=== PATIENT | male | born 1980 | race Caucasian/White ===

== ENCOUNTER 2021-06-14 22:51 | Inpatient (IN) ==
[2021-06-14 23:21] LABS: ABG ALLEN TEST POS; ABG BASE EXCESS 2.2 mmol/L (-2.0-2.0); ABG HCO3 26.5 mmol/L (22-26)
--- NOTE | 2021-06-14 23:24 | DR.GENAD ---
HPI Time Seen Time Seen by Provider: 06/14/21 23:16 HPI Comment HPI Comment: Reportedly diagnosed with covid last Sunday with fever, chills and cough; over the past few days, he's becoming increasingly sob with fatigue and body aches; no abd pain, n/v/d. ROS Review of Systems Eyes: No Symptoms Reported ENTM: No Symptoms Reported Cardiovascular: No Symptoms Reported Gastrointestinal/Abdominal: No Symptoms Reported Genitourinary: No Symptoms Reported Neurological: No Symptoms Reported Integumentary: No Symptoms Reported Hematologic/Lymphatic: No Symptoms Reported Endocrine: No Symptoms Reported Psychiatric: No Symptoms Reported PE Vital Signs Vitals: Temperature 97.5 F Pulse Rate 89 Respiratory Rate 22 Blood Pressure 119/78 O2 Sat by Pulse Oximetry 88 General Limitations: No Limitations General Appearance: Alert and In No Apparent Distress Head Head Exam: Normal Inspection Eyes Eye exam: Normal Appearance Neck Neck Exam: Normal Inspection Chest Chest Inspection: Normal Inspection Respiratory Respiratory Exam: Normal Lung Sounds Bilat Respiratory Exam: Bilateral: Clear to Auscultation Cardiovascular Cardiovascular Exam: Regular Rate and Normal Rhythm Abdominal Exam Abdominal Exam: Normal Inspection, Normal Bowel Sounds and Soft Extremities Extremities Exam: Normal Inspection Back Back Exam: Normal Inspection Neurologic Neurological Exam: Alert and Oriented X3 Psychiatric Psychiatric Exam: Normal Affect and Normal Mood Skin Skin Exam: Warm, Dry, Intact and Normal Color COURSE Consultation Call Returned: 03:24 (Dr Ogden accepts admission) ROR Labs Reviewed Laboratory Results Reviewed?: Yes Result Diagrams: 06/14/21 23:26 06/14/21 23:26 Laboratory: WBC 4.3 X10^3/uL (3.6-10.0) 06/14/21 23:26 RBC 5.15 X10^6/uL (4.7-6.0) 06/14/21 23:26 Hgb 16.0 g/dL (13.5-18.0) 06/14/21 23:26 Hct 45.7 % (42.0-54.0) 06/14/21 23:26 MCV 88.8 fL (80.0-100.0) 06/14/21 23:26 MCH 31.1 pg (27.0-34.0) 06/14/21 23:26 MCHC 35.1 g/dL (33.0-35.0) H 06/14/21 23:26 RDW 13.5 % (11.6-16.5) 06/14/21 23: Plt Count 210 X10^3/uL (150.0-450.0) 06/14/21: MPV 8.1 fL (7.4-11.0) 06/14/21 23: Neut % (Auto) 83.3 % (42.0-75.0) H 06/14/21 23: Lymph % (Auto) 12.5 % (21.0-51.0) L 06/14/21 23: [place] % (Auto) 4.1 % (0.0-13.0) 06/14/21: Eos % (Auto) 0.0 % (0.9-2.9) L 06/14/21: Baso % (Auto) 0.1 % (0.2-1.0) L 06/14/21: Neut # (Auto) 3.6 x10^3/uL (2.2-4.8) 06/14/21: Lymph # (Auto) 0.5 X10^3/uL (1.3-2.9) L 06/14/21 23: [place] # (Auto) 0.2 x10^3/uL (0.3-0.8) L 06/14/21 23: Eos # (Auto) 0.0 x10^3/uL (0.0-0.2) 06/14/21 23: Baso # (Auto) 0.0 X10^3/uL (0.0-0.1) 06/14/21: Absolute Nucleated RBC 0.0 /100WBC 06/14/21 23: Sample Site Lr 06/14/21 23:15 ABG pH 7.440 (7.35-7.45) 06/14/21 23:15 ABG pCO2 39.0 mmHg (35.0-45.0) 06/14/21 23:15 ABG pO2 52.0 mmHg (80.0-100.0) L 06/14/21 23:15 ABG HCO3 26.5 mmol/L (22-26) H 06/14/21 23:15 ABG O2 Saturation 88.0 % (90-100) L 06/14/21 23:15 ABG Base Excess 2.2 mmol/L (-2.0-2.0) H 06/14/21 23:15 Raul Test Pos 06/14/21 23:15 A-a Gradient 49.0 mmHg 06/14/21 23:15 FiO2 21.0 06/14/21 23:15 Blood Gas Comments Ludmila well ae 06/14/21 23:15 Sodium 137 mmol/L (136-145) 06/14/21 23:26 Corrected Sodium 139 mmol/L (136-145) 06/14/21 23:26 Potassium 4.2 mmol/L (3.5-5.1) 06/14/21 23:26 Chloride 101 mmol/L (98-107) 06/14/21 23:26 Carbon Dioxide 27.1 mmol/L (21-32) 06/14/21 23:26 BUN 13 mg/dL (7-18) 06/14/21 23:26 Creatinine 1.20 mg/dL (0.70-1.30) 06/14/21 23:26 Est GFR (MDRD) Af Amer > 60 (>60) 06/14/21 23:26 Est GFR (MDRD) Non-Af > 60 (>60) 06/14/21 23:26 Glucose 180 mg/dL (65-99) H 06/14/21 23:26 Calcium 8.4 mg/dL (8.5-10.1) L 06/14/21 23:26 Corrected Calcium 9.1 mg/dL (8.5-10.1) 06/14/21 23:26 Ferritin 3514 ng/mL (26-388) H 06/14/21 23:26 Total Bilirubin 0.30 mg/dL (0.2-1.0) 06/14/21 23:26 AST 41 Units/L (15-37) H 06/14/21 23:26 ALT 46 Units/L (12-78) 06/14/21 23:26 Alkaline Phosphatase 90 Units/L (46-116) 06/14/21 23:26 C-Reactive Protein 87.90 mg/L (0-3.0) H 06/14/21 23:26 B-Natriuretic Peptide 8.7 pg/mL (0-79) 06/14/21 23:26 Total Protein 7.7 g/dL (6.4-8.2) 06/14/21 23:26 Albumin 3.1 g/dL (3.4-5.0) L 06/14/21 23:26 Globulin 4.6 g/dL (2.5-4.5) H 06/14/21 23:26 Albumin/Globulin Ratio 0.7 Ratio (1.1-2.1) L 06/14/21 23:26 SARS-CoV-2 (PCR) Positive (NEGATIVE) A 06/15/21 01:43 Influenza Type A (PCR) Negative (NEGATIVE) 06/15/21 01:43 Influenza Type B (PCR) Negative (NEGATIVE) 06/15/21 01:43 RSV (PCR) Negative (NEGATIVE) 06/15/21 01:43 XRAY XRAY Interpreted by: Radiologist X-ray Results: cxr: Bilateral pneumonia. Opioid Opioid Risk Tool Total: 0 Total Score Risk Category: Low Risk Copyright: [facility] predicting aberrant behaviors Diagnosis Discharge Problem: Pneumonia due to COVID-19 virus, Hypoxia Instructions Forms: Patient Portal Social Distancing
[2021-06-14 23:38] LABS: WHITE BLOOD COUNT 4.3 X10^3/uL (3.6-10.0)
[2021-06-14 23:41] LABS: BASOPHILS % (AUTO) 0.1 % (0.2-1.0); HEMATOCRIT 45.7 % (42.0-54.0); LYMPHOCYTES # (AUTO) 0.5 X10^3/uL (1.3-2.9); LYMPHOCYTES % (AUTO) 12.5 % (21.0-51.0); MEAN CORPUSCULAR HEMOGLOBIN 31.1 pg (27.0-34.0); MEAN CORPUSCULAR HGB CONC 35.1 g/dL (33.0-35.0); MEAN CORPUSCULAR VOLUME 88.8 fL (80.0-100.0); MEAN PLATELET VOLUME 8.1 fL (7.4-11.0); MONOCYTES # (AUTO) 0.2 x10^3/uL (0.3-0.8); MONOCYTES % (AUTO) 4.1 % (0.0-13.0); NEUTROPHILS # (AUTO) 3.6 x10^3/uL (2.2-4.8); NEUTROPHILS % (AUTO) 83.3 % (42.0-75.0); PLATELET COUNT 210 X10^3/uL (150.0-450.0); RED BLOOD COUNT 5.15 X10^6/uL (4.7-6.0); RED CELL DISTRIBUTION WIDTH 13.5 % (11.6-16.5)
[2021-06-14 23:49] LABS: ALANINE AMINOTRANSFERASE 46 Units/L (12-78); ALBUMIN 3.1 g/dL (3.4-5.0); ALKALINE PHOSPHATASE 90 Units/L (46-116); ASPARTATE AMINO TRANSFERASE 41 Units/L (15-37); BLOOD UREA NITROGEN 13 mg/dL (7-18); CALCIUM 8.4 mg/dL (8.5-10.1); CARBON DIOXIDE 27.1 mmol/L (21-32); CHLORIDE 101 mmol/L (98-107); COR CA(FOR HYPOALB) 9.1 mg/dL (8.5-10.1); COR NA(FOR HYPERGLY) 139 mmol/L (136-145); SODIUM 137 mmol/L (136-145); TOTAL PROTEIN 7.7 g/dL (6.4-8.2); eGFR NON BLACK RACES > 60 (>60)
[2021-06-15] MEDS ORDERED: SOLU-Medrol 125 MG VIAL IVP ONE (00:09)
[2021-06-15] MEDS ORDERED: SOLU-Medrol 125 MG VIAL ONE ×2 (00:16→08:59)
[2021-06-15] MEDS ORDERED: ZOSYN VIAL 3.375 GRAMS IV ONE ×4 (00:16→13:49)
[2021-06-15] MEDS ORDERED: NS 100 ML IV + SPIKE MINIBAG* 100 ML IV ONE ×3 (00:17→13:49)
[2021-06-15] MEDS: NS 1000 ML 1,000 ML IV SCH ×3 (00:20→17:05)
[2021-06-15] MEDS ORDERED: NS 1000 ML 1,000 ML ONE ×2 (00:21→18:17)
[2021-06-15] MEDS: ZOSYN VIAL 3.375 GRAMS 3.375 G in NS 100 ML IV + SPIKE MINIBAG* 100 ML IV SCH ×4 (00:24→22:35)
--- NOTE | 2021-06-15 01:22 | RAD ---
PROCEDURE: Chest X-ray 1 View .HISTORY: Dyspnea and COVID-19.TECHNIQUE: AP view .COMPARISON: None .TECHNICAL QUALITY: Satisfactory .FINDINGS:Normal size heart for degree of inspiration.Mediastinum is unremarkable.Normal central vascularity.Rqxo-[id number] consolidation peripherally located in both lung alcantar consistent with pneumonia with no pleural fluid, pulmonary masses, or pneumothorax.IMPRESSION:Bilateral pneumonia.Electronically signed by: Chet Sheets (Jun 15, 2021 01:18:44)
[2021-06-15] MEDS ORDERED: ZOFRAN INJ 4 MG VIAL IVP PRN (03:21)
[2021-06-15] MEDS ORDERED: TYLENOL 325 MG TAB PO PRN (03:21)
[2021-06-15] MEDS ORDERED: ZOSYN VIAL 3.375 GRAMS 3.375 G in NS 100 ML IV + SPIKE MINIBAG* 100 ML IV SCH (03:22)
[2021-06-15] MEDS ORDERED: NS 50 ML IV 50 ML IV ONE (03:35)
[2021-06-15] MEDS ORDERED: ASCORBIC ACID INJ MULTI-DOSE VIAL IV ONE (03:37)
[2021-06-15] MEDS: ASCORBIC ACID INJ MULTI-DOSE VIAL 1,500 MG in NS 50 ML IV 50 ML IV SCH ×4 (03:48→21:33)
[2021-06-15] MEDS ORDERED: NS 100 ML IV + SPIKE MINIBAG* 0 ML IV ONE (05:34)
[2021-06-15 06:19] LABS: BASOPHILS % (AUTO) 0.2 % (0.2-1.0); HEMOGLOBIN 15.5 g/dL (13.5-18.0); LYMPHOCYTES # (AUTO) 0.7 X10^3/uL (1.3-2.9); LYMPHOCYTES % (AUTO) 14.8 % (21.0-51.0); MEAN CORPUSCULAR HEMOGLOBIN 31.7 pg (27.0-34.0); MEAN CORPUSCULAR HGB CONC 35.3 g/dL (33.0-35.0); MEAN CORPUSCULAR VOLUME 89.7 fL (80.0-100.0); MEAN PLATELET VOLUME 8.4 fL (7.4-11.0); MONOCYTES # (AUTO) 0.2 x10^3/uL (0.3-0.8); MONOCYTES % (AUTO) 4.8 % (0.0-13.0); NEUTROPHILS # (AUTO) 3.6 x10^3/uL (2.2-4.8); NEUTROPHILS % (AUTO) 80.2 % (42.0-75.0); PLATELET COUNT 207 X10^3/uL (150.0-450.0); RED CELL DISTRIBUTION WIDTH 13.6 % (11.6-16.5); WHITE BLOOD COUNT 4.5 X10^3/uL (3.6-10.0)
[2021-06-15 06:42] LABS: ALANINE AMINOTRANSFERASE 44 Units/L (12-78); ALKALINE PHOSPHATASE 83 Units/L (46-116); ASPARTATE AMINO TRANSFERASE 42 Units/L (15-37); BLOOD UREA NITROGEN 12 mg/dL (7-18); CALCIUM 8.4 mg/dL (8.5-10.1); CARBON DIOXIDE 28.9 mmol/L (21-32); CHLORIDE 102 mmol/L (98-107); COR CA(FOR HYPOALB) 9.2 mg/dL (8.5-10.1); COR NA(FOR HYPERGLY) 141 mmol/L (136-145); CREATININE 1.23 mg/dL (0.70-1.30); SODIUM 139 mmol/L (136-145); TOTAL PROTEIN 7.4 g/dL (6.4-8.2); eGFR NON BLACK RACES > 60 (>60)
[2021-06-15] MEDS ORDERED: SOLU-Medrol 125 MG VIAL IVP SCH ×2 (09:00→14:00)
[2021-06-15] MEDS: BROVANA IN SCH ×2 (09:42→20:50)
[2021-06-15] MEDS: PULMICORT NEB TX 0.5 MG NEB SCH ×2 (09:42→20:50)
--- NOTE | 2021-06-15 09:53 | DR.H&P ---
H&P History & Physical for Day of: H&P Date: 06/15/21 Chief Complaint Chief Complaint: Fever, chills Weakness, shortness of breath Allergies Allergies Allergy/AdvReac Type Severity Reaction Status Date / Time No Known Drug Allergies Allergy Verified 06/14/21 23:14 History of Present Illness History of Present Illness: Pt is a 40 year old male with no past medical history presenting with fever, chills, cough, and progressively worsening shortness of breath. He was tested positive for COVID-19 last Sunday. He was treated with azithromycin, prednisone, and taking vitamins without improvement. In the ED he was noted to have significant dyspnea and hypoxia. Labs/imaging: Wbc 4.5, Hgb 15.5, Plt 207, Na 139, K 4.3, Creatinine 1.23, Glucose 175, D-dimer 0.46, CRP 87, ABG: pH 7.44, pCO2 39, pO2 52, HCO3 26, O2sat 88% on RA. COVID-19 positive, CXR: Bilateral pneumonia. [id number] consolidation peripherally located in both lung alcantar consistent with pneumonia with no pleural fluid, pulmonary masses, or pneumothorax. Treatment course includes: IVF NS@75ml/h, Remdesivir, Solumedrol 80mg q8h, scheduled Bronchodilators, Antibiotics: Zosyn, Ivermectin, immune supporting supplements, supplemental O2, I/S, Respiratory therapy consult, Pneumonia protocol. Pt is currently on heated high flow oxygen with FiO2 75%. Wean and titrate oxygen as tolerated. Order Actemra 400mg x1, pharmacy awaiting supply, will administer when received. Continue to closely mo nitor and follow up labs/imaging. Time spent on clinical assessment, reviewing labs and imaging, decision making, and documentation greater than 45 minutes. Past Surgical History Surgical History: Ortho Surgery Social History Does patient currently use any type of tobacco product: No Have you used tobacco products in the last 12 months: No Type of Tobacco Use: None Does any household member use tobacco: No Alcohol Use: None Drug Use: None Medications Home Medications: No Known Drug Allergies Allergy (Verified 06/14/21 23:14) CONTINUE taking the following medications NK 06/15/21 [History] Labs Result Diagrams: 06/15/21 03:42 06/15/21 03:42 Labs: Laboratory WBC 4.5 X10^3/uL (3.6-10.0) 06/15/21 03:42 RBC 4.90 X10^6/uL (4.7-6.0) 06/15/21 03:42 Hgb 15.5 g/dL (13.5-18.0) 06/15/21 03:42 Hct 44.0 % (42.0-54.0) 06/15/21 03:42 MCV 89.7 fL (80.0-100.0) 06/15/21 03:42 MCH 31.7 pg (27.0-34.0) 06/15/21 03:42 MCHC 35.3 g/dL (33.0-35.0) H 06/15/21 03:42 RDW 13.6 % (11.6-16.5) 06/15/21 03:42 Plt Count 207 X10^3/uL (150.0-450.0) 06/15/21 03:42 MPV 8.4 fL (7.4-11.0) 06/15/21 03:42 Neut % (Auto) 80.2 % (42.0-75.0) H 06/15/21 03:42 Lymph % (Auto) 14.8 % (21.0-51.0) L 06/15/21 03:42 [place] % (Auto) 4.8 % (0.0-13.0) 06/15/21 03:42 Eos % (Auto) 0.0 % (0.9-2.9) L 06/15/21 03:42 Baso % (Auto) 0.2 % (0.2-1.0) 06/15/21 03:42 Neut # (Auto) 3.6 x10^3/uL (2.2-4.8) 06/15/21 03:42 Lymph # (Auto) 0.7 X10^3/uL (1.3-2.9) L 06/15/21 03:42 [place] # (Auto) 0.2 x10^3/uL (0.3-0.8) L 06/15/21 03:42 Eos # (Auto) 0.0 x10^3/uL (0.0-0.2) 06/15/21 03:42 Baso # (Auto) 0.0 X10^3/uL (0.0-0.1) 06/15/21 03:42 Absolute Nucleated RBC 0.1 /100WBC 06/15/21 03:42 D-Dimer 0.46 ug/ml (0.0-0.57) 06/15/21 08:36 Sample Site Lr 06/14/21 23:15 ABG pH 7.440 (7.35-7.45) 06/14/21 23:15 ABG pCO2 39.0 mmHg (35.0-45.0) 06/14/21 23:15 ABG pO2 52.0 mmHg (80.0-100.0) L 06/14/21 23:15 ABG HCO3 26.5 mmol/L (22-26) H 06/14/21 23:15 ABG O2 Saturation 88.0 % (90-100) L 06/14/21 23:15 ABG Base Excess 2.2 mmol/L (-2.0-2.0) H 06/14/21 23:15 Raul Test Pos 06/14/21 23:15 A-a Gradient 49.0 mmHg 06/14/21 23:15 FiO2 21.0 06/14/21 23:15 Blood Gas Comments Ludmila well ae 06/14/21 23:15 Sodium 139 mmol/L (136-145) 06/15/21 03:42 Corrected Sodium 141 mmol/L (136-145) 06/15/21 03:42 Potassium 4.3 mmol/L (3.5-5.1) 06/15/21 03:42 Chloride 102 mmol/L (98-107) 06/15/21 03:42 Carbon Dioxide 28.9 mmol/L (21-32) 06/15/21 03:42 BUN 12 mg/dL (7-18) 06/15/21 03:42 Creatinine 1.23 mg/dL (0.70-1.30) 06/15/21 03:42 Est GFR (MDRD) Af Amer > 60 (>60) 06/15/21 03:42 Est GFR (MDRD) Non-Af > 60 (>60) 06/15/21 03:42 Glucose 175 mg/dL (65-99) H 06/15/21 03:42 POC Glucose (mg/dL) 154 mg/dL (65-99) H 06/15/21 06:01 Calcium 8.4 mg/dL (8.5-10.1) L 06/15/21 03:42 Corrected Calcium 9.2 mg/dL (8.5-10.1) 06/15/21 03:42 Ferritin 3514 ng/mL (26-388) H 06/14/21 23:26 Total Bilirubin 0.40 mg/dL (0.2-1.0) 06/15/21 03:42 AST 42 Units/L (15-37) H 06/15/21 03:42 ALT 44 Units/L (12-78) 06/15/21 03:42 Alkaline Phosphatase 83 Units/L (46-116) 06/15/21 03:42 C-Reactive Protein 87.90 mg/L (0-3.0) H 06/14/21 23:26 B-Natriuretic Peptide 8.7 pg/mL (0-79) 06/14/21 23:26 Total Protein 7.4 g/dL (6.4-8.2) 06/15/21 03:42 Albumin 3.0 g/dL (3.4-5.0) L 06/15/21 03:42 Globulin 4.4 g/dL (2.5-4.5) 06/15/21 03:42 Albumin/Globulin Ratio 0.7 Ratio (1.1-2.1) L 06/15/21 03:42 SARS-CoV-2 (PCR) Positive (NEGATIVE) A 06/15/21 01:43 Influenza Type A (PCR) Negative (NEGATIVE) 06/15/21 01:43 Influenza Type B (PCR) Negative (NEGATIVE) 06/15/21 01:43 RSV (PCR) Negative (NEGATIVE) 06/15/21 01:43 Review of Systems Constitutional: Fever, Chills and Weakness Eyes: No Symptoms Reported ENT: No Symptoms Reported Respiratory: Cough and Shortness of Breath Cardiovascular: No Symptoms Reported Gastrointestinal: No Symptoms Reported Genitourinary: No Symptoms Reported Musculoskeletal: No Symptoms Reported Skin: No Symptoms Reported Neurological: No Symptoms Reported Physical Exam Vital Signs: Temperature 98.1 F Pulse Rate [Left Brachial] 85 Pulse Rate 81 Respiratory Rate 22 Blood Pressure [Left Arm] 115/71 Blood Pressure 131/72 O2 Sat by Pulse Oximetry 94 Oriented: Normal Eyes: Normal Ear: Normal Nose: Normal Throat: Normal Respiratory: Diminished Throughout and Rales Throughout Cardiovascular: Normal : Normal Auscultation: Bowel Sounds: Normal Palpation: Normal Tenderness: Normal Skin: Normal Musculoskeletal: Normal Psychiatric: Normal Mood Description: Calm and Appropriate Affect: Normal Speech Pattern: Clear and Appropriate Assessment/Plan (1) Pneumonia due to COVID-19 virus: Status: Acute Plan: Per protocol (2) Hypoxia: Status: Acute Review H&P Reviewed: Yes Patient was examined?: Yes
[2021-06-15] MEDS ORDERED: REMDESIVIR 200 MG in NS 250 ML IV 250 ML IV ONE (13:02)
[2021-06-15] MEDS ORDERED: ACTEMRA 400 MG in NS 100 ML IV 80 ML IV SCH (13:26)
[2021-06-15] MEDS: HumuLIN R SUBCUT PRN ×2 (13:35→21:32)
[2021-06-15] MEDS ORDERED: NS 250 ML IV 250 ML IV ONE (13:44)
[2021-06-15] MEDS ORDERED: REMDESIVIR IV ONE (13:44)
[2021-06-15] MEDS ORDERED: IVERMECTIN ONE (13:44)
[2021-06-15] MEDS ORDERED: PHARMACY CONSULT - IVERMECTIN XX SCH (14:00)
[2021-06-15] MEDS ORDERED: REMDESIVIR 200 MG in NS 100 ML IV 140 ML IV ONE (14:00)
[2021-06-15] MEDS: IVERMECTIN PO SCH (14:14)
[2021-06-15] MEDS ORDERED: ASCORBIC ACID INJ MULTI-DOSE VIAL 1,500 MG in NS 100 ML IV 100 ML IV SCH (15:00)
[2021-06-15] MEDS: SNACK - Diabetic Appropriate PO SCH (20:30)
[2021-06-15] MEDS: LOVENOX INJ 30 MG SYR SC SCH (21:33)
[2021-06-15] MEDS: ZINC SULFATE PO SCH (21:33)
[2021-06-16] MEDS: ASCORBIC ACID INJ MULTI-DOSE VIAL 1,500 MG in NS 50 ML IV 50 ML IV SCH ×3 (03:09→21:45)
[2021-06-16 05:09] LABS: BASOPHILS % (AUTO) 0 % (0.2-1.0); HEMOGLOBIN 14.4 g/dL (13.5-18.0); MEAN CORPUSCULAR HEMOGLOBIN 31.4 pg (27.0-34.0); MEAN CORPUSCULAR HGB CONC 35.2 g/dL (33.0-35.0); MEAN CORPUSCULAR VOLUME 89.1 fL (80.0-100.0); MEAN PLATELET VOLUME 7.8 fL (7.4-11.0); MONOCYTES # (AUTO) 0.7 x10^3/uL (0.3-0.8); MONOCYTES % (AUTO) 7.7 % (0.0-13.0); NEUTROPHILS % (AUTO) 82.3 % (42.0-75.0); PLATELET COUNT 232 X10^3/uL (150.0-450.0); RED BLOOD COUNT 4.61 X10^6/uL (4.7-6.0); RED CELL DISTRIBUTION WIDTH 13.7 % (11.6-16.5); WHITE BLOOD COUNT 9.7 X10^3/uL (3.6-10.0)
[2021-06-16 05:32] LABS: ALANINE AMINOTRANSFERASE 36 Units/L (12-78); ALBUMIN 2.4 g/dL (3.4-5.0); ALKALINE PHOSPHATASE 70 Units/L (46-116); ASPARTATE AMINO TRANSFERASE 49 Units/L (15-37); BLOOD UREA NITROGEN 16 mg/dL (7-18); CARBON DIOXIDE 28.1 mmol/L (21-32); CHLORIDE 108 mmol/L (98-107); COR CA(FOR HYPOALB) 9.3 mg/dL (8.5-10.1); COR NA(FOR HYPERGLY) 143 mmol/L (136-145); CREATININE 1.25 mg/dL (0.70-1.30); SODIUM 142 mmol/L (136-145); TOTAL PROTEIN 6.2 g/dL (6.4-8.2); eGFR NON BLACK RACES > 60 (>60)
[2021-06-16] MEDS: ZOSYN VIAL 3.375 GRAMS 3.375 G in NS 100 ML IV + SPIKE MINIBAG* 100 ML IV SCH ×3 (05:49→22:57)
--- NOTE | 2021-06-16 06:52 | RAD ---
HISTORYPNEUMONIA F/USTUDYCHEST, 1 [id number]/2021.TECHNIQUEAP view of the chestFINDINGSCardiac and mediastinal contours are within normal limits. Similar appearance of bilateral multifocal airspace and interstitial opacities. No definite pleural effusion or pneumothorax.IMPRESSIONNo significant change COVID pneumonia.Electronically signed by: Robert Benavides (Jun 16, 2021 06:48:27)
[2021-06-16] MEDS ORDERED: NS 250 ML IV 250 ML IV ONE (08:37)
[2021-06-16] MEDS ORDERED: REMDESIVIR 100 MG in NS 250 ML IV 250 ML IV SCH (09:00)
[2021-06-16] MEDS: IVERMECTIN PO SCH (09:00)
[2021-06-16] MEDS: ATIVAN TAB 0.5 MG PO SCH ×2 (09:15→22:20)
[2021-06-16] MEDS: REMDESIVIR 100 MG in NS 100 ML IV + SPIKE MINIBAG* 120 ML IV SCH (09:15)
[2021-06-16] MEDS: ZINC SULFATE PO SCH ×2 (09:15→22:20)
[2021-06-16] MEDS: TUSSIONEX PENNKINETIC SUSP PO PRN (09:15)
[2021-06-16] MEDS: BROVANA IN SCH ×2 (09:45→21:46)
[2021-06-16] MEDS: PULMICORT NEB TX 0.5 MG NEB SCH ×2 (09:45→21:46)
--- NOTE | 2021-06-16 11:40 | PCM.PROG ---
Progress Note Progress Note for Day of Date of Exam: 06/16/21 Subjective Subjective: Pt is a 40 year old male with past medical history of SHABBIR, admitted for COVID-19 pneumonia with hypoxia. This morning patient continues to report significant shortness of breath. He is coughing up copious amount of sputum. Labs/imaging: Wbc 9.7, Hgb 14.4, Plt 232, Na 142, K 4.1, Creatinine 1.25, Glucose 125, CRP 87>26, CXR: No significant change in bilateral pneumonia. Treatment course includes: IVF NS@75ml/h, Remdesivir, Solumedrol 80mg q8h, scheduled Bronchodilators, Antibiotics: Zosyn, Ivermectin, immune supporting supplements, supplemental O2, I/S, Respiratory therapy consult, Pneumonia protocol. Pt is currently on heated high flow oxygen that had to be increased to FiO2 94%. Wean and titrate oxygen as tolerated. Order Actemra 400mg x1, pharmacy awaiting supply, will administer when received. Decrease IVF to KVO, increase solumedrol to 125mg TID. Order smart vest. Add on ativan prn for anxiety and IV morphine for air hunger. Continue to closely monitor and follow up labs/imaging. Time spent on clinical assessment, reviewing labs and imaging, decision making, and documentation greater than 45 minutes. Past Medical Family Social History Past Med/Fam/Surg Hx: No changes since H&P Allergies: Allergies No Known Drug Allergies Allergy (Verified 06/14/21 23:14) Review of Systems ROS: No change since H&P Vital Signs and I&O's Vital Signs: Temperature 100.5 F Pulse Rate [Left Brachial] 90 Pulse Rate 73 Respiratory Rate 20 Blood Pressure [Left Arm] 109/82 Blood Pressure 131/72 O2 Sat by Pulse Oximetry 90 Intake and Output: Intake & Output 06/13/21 06/14/21 06/15/21 06/16/21 23:59 23:59 23:59 23:59 Intake Total 4470 / 4470 1240 / 1240 Output Total 2024 / 2024 750 / 750 Balance 2445 / 2445 490 / 490 Physical Exam Oriented: Normal Eyes: Normal Ear: Normal Nose: Normal Throat: Normal Respiratory: Diminished and Rales Cardiovascular: Normal : Normal Auscultation: Bowel Sounds: Normal Tenderness: Normal Skin: Normal Musculoskeletal: Normal Psychiatric: Normal Mood Description: Anxious and Appropriate Affect: Anxious Speech Pattern: Clear and Appropriate Laboratory and Diagnostics Result Diagrams: 06/16/21 04:37 06/16/21 04:37 Labs: Laboratory WBC 9.7 X10^3/uL (3.6-10.0) 06/16/21 04:37 RBC 4.61 X10^6/uL (4.7-6.0) L 06/16/21 04:37 Hgb 14.4 g/dL (13.5-18.0) 06/16/21 04:37 Hct 41.0 % (42.0-54.0) L 06/16/21 04:37 MCV 89.1 fL (80.0-100.0) 06/16/21 04:37 MCH 31.4 pg (27.0-34.0) 06/16/21 04:37 MCHC 35.2 g/dL (33.0-35.0) H 06/16/21 04:37 RDW 13.7 % (11.6-16.5) 06/16/21 04:37 Plt Count 232 X10^3/uL (150.0-450.0) 06/16/21 04:37 MPV 7.8 fL (7.4-11.0) 06/16/21 04:37 Neut % (Auto) 82.3 % (42.0-75.0) H 06/16/21 04:37 Lymph % (Auto) 10.0 % (21.0-51.0) L 06/16/21 04:37 [place] % (Auto) 7.7 % (0.0-13.0) 06/16/21 04:37 Eos % (Auto) 0.0 % (0.9-2.9) L 06/16/21 04:37 Baso % (Auto) 0 % (0.2-1.0) L 06/16/21 04:37 Neut # (Auto) 8.0 x10^3/uL (2.2-4.8) H 06/16/21 04:37 Lymph # (Auto) 1.0 X10^3/uL (1.3-2.9) L 06/16/21 04:37 [place] # (Auto) 0.7 x10^3/uL (0.3-0.8) 06/16/21 04:37 Eos # (Auto) 0.0 x10^3/uL (0.0-0.2) 06/16/21 04:37 Baso # (Auto) 0.0 X10^3/uL (0.0-0.1) 06/16/21 04:37 Absolute Nucleated RBC 0.1 /100WBC 06/16/21 04:37 D-Dimer 0.46 ug/ml (0.0-0.57) 06/15/21 08:36 Sample Site Lr 06/14/21 23:15 ABG pH 7.440 (7.35-7.45) 06/14/21 23:15 ABG pCO2 39.0 mmHg (35.0-45.0) 06/14/21 23:15 ABG pO2 52.0 mmHg (80.0-100.0) L 06/14/21 23:15 ABG HCO3 26.5 mmol/L (22-26) H 06/14/21 23:15 ABG O2 Saturation 88.0 % (90-100) L 06/14/21 23:15 ABG Base Excess 2.2 mmol/L (-2.0-2.0) H 06/14/21 23:15 Raul Test Pos 06/14/21 23:15 A-a Gradient 49.0 mmHg 06/14/21 23:15 FiO2 21.0 06/14/21 23:15 Blood Gas Comments Ludmila well ae 06/14/21 23:15 Sodium 142 mmol/L (136-145) 06/16/21 04:37 Corrected Sodium 143 mmol/L (136-145) 06/16/21 04:37 Potassium 4.1 mmol/L (3.5-5.1) 06/16/21 04:37 Chloride 108 mmol/L (98-107) H 06/16/21 04:37 Carbon Dioxide 28.1 mmol/L (21-32) 06/16/21 04:37 BUN 16 mg/dL (7-18) 06/16/21 04:37 Creatinine 1.25 mg/dL (0.70-1.30) 06/16/21 04:37 Est GFR (MDRD) Af Amer > 60 (>60) 06/16/21 04:37 Est GFR (MDRD) Non-Af > 60 (>60) 06/16/21 04:37 Glucose 125 mg/dL (65-99) H 06/16/21 04:37 POC Glucose (mg/dL) 126 mg/dL (65-99) H 06/16/21 11:14 Calcium 8.0 mg/dL (8.5-10.1) L 06/16/21 04:37 Corrected Calcium 9.3 mg/dL (8.5-10.1) 06/16/21 04:37 Ferritin 3514 ng/mL (26-388) H 06/14/21 23:26 Total Bilirubin 0.40 mg/dL (0.2-1.0) 06/16/21 04:37 AST 49 Units/L (15-37) H 06/16/21 04:37 ALT 36 Units/L (12-78) 06/16/21 04:37 Alkaline Phosphatase 70 Units/L (46-116) 06/16/21 04:37 C-Reactive Protein 26.20 mg/L (0-3.0) H 06/16/21 04:37 B-Natriuretic Peptide 8.7 pg/mL (0-79) 06/14/21 23:26 Total Protein 6.2 g/dL (6.4-8.2) L 06/16/21 04:37 Albumin 2.4 g/dL (3.4-5.0) L 06/16/21 04:37 Globulin 3.8 g/dL (2.5-4.5) 06/16/21 04:37 Albumin/Globulin Ratio 0.6 Ratio (1.1-2.1) L 06/16/21 04:37 SARS-CoV-2 (PCR) Positive (NEGATIVE) A 06/15/21 01:43 Influenza Type A (PCR) Negative (NEGATIVE) 06/15/21 01:43 Influenza Type B (PCR) Negative (NEGATIVE) 06/15/21 01:43 RSV (PCR) Negative (NEGATIVE) 06/15/21 01:43 Plan (1) Pneumonia due to COVID-19 virus: Status: Acute Plan: Per protocol (2) Hypoxia: Status: Acute
[2021-06-16] MEDS: LOVENOX INJ 30 MG SYR SC SCH ×2 (12:04→22:20)
[2021-06-16] MEDS: SOLU-Medrol 125 MG VIAL IVP SCH ×2 (14:30→22:36)
[2021-06-16] MEDS: SNACK - Diabetic Appropriate PO SCH (21:00)
[2021-06-16] MEDS: COLACE CAP 100 MG PO SCH (22:20)
[2021-06-16] MEDS: HumuLIN R SUBCUT PRN (22:25)
[2021-06-17] MEDS: TUSSIONEX PENNKINETIC SUSP PO PRN ×2 (03:31→11:33)
[2021-06-17] MEDS: NS 1000 ML 1,000 ML IV SCH ×3 (03:40→18:31)
[2021-06-17] MEDS: ASCORBIC ACID INJ MULTI-DOSE VIAL 1,500 MG in NS 50 ML IV 50 ML IV SCH ×3 (04:33→21:28)
[2021-06-17] MEDS: SOLU-Medrol 125 MG VIAL IVP SCH ×3 (05:03→21:28)
[2021-06-17] MEDS: ZOSYN VIAL 3.375 GRAMS 3.375 G in NS 100 ML IV + SPIKE MINIBAG* 100 ML IV SCH ×3 (05:03→21:28)
[2021-06-17 05:22] LABS: BASOPHILS % (AUTO) 0.1 % (0.2-1.0); EOSINOPHILS % (AUTO) 0.1 % (0.9-2.9); LYMPHOCYTES # (AUTO) 0.7 X10^3/uL (1.3-2.9); LYMPHOCYTES % (AUTO) 9.4 % (21.0-51.0); MEAN CORPUSCULAR HEMOGLOBIN 31.4 pg (27.0-34.0); MEAN CORPUSCULAR VOLUME 89.6 fL (80.0-100.0); MEAN PLATELET VOLUME 7.7 fL (7.4-11.0); MONOCYTES # (AUTO) 0.5 x10^3/uL (0.3-0.8); MONOCYTES % (AUTO) 6.6 % (0.0-13.0); NEUTROPHILS # (AUTO) 6.6 x10^3/uL (2.2-4.8); NEUTROPHILS % (AUTO) 83.8 % (42.0-75.0); PLATELET COUNT 238 X10^3/uL (150.0-450.0); RED BLOOD COUNT 4.46 X10^6/uL (4.7-6.0); RED CELL DISTRIBUTION WIDTH 13.5 % (11.6-16.5); WHITE BLOOD COUNT 7.9 X10^3/uL (3.6-10.0)
--- NOTE | 2021-06-17 05:40 | RAD ---
PROCEDURE: Chest X-ray 1 View .HISTORY: Follow-up pneumonia.TECHNIQUE: AP view .COMPARISON: 06/16/2021.TECHNICAL QUALITY: Satisfactory .FINDINGS:Unremarkable cardio mediastinal silhouette.Normal central vascularity.Moderate right and mild left consolidation similar to previous study consistent with pneumonia with no pleural fluid or pneumothorax.IMPRESSION:Unchanged bilateral pneumonia.Electronically signed by: Chet Sheets (Jun 17, 2021 05:38:12)
[2021-06-17 06:22] LABS: ALANINE AMINOTRANSFERASE 39 Units/L (12-78); ALBUMIN 2.2 g/dL (3.4-5.0); ALKALINE PHOSPHATASE 69 Units/L (46-116); ASPARTATE AMINO TRANSFERASE 45 Units/L (15-37); BLOOD UREA NITROGEN 15 mg/dL (7-18); CARBON DIOXIDE 26.2 mmol/L (21-32); CHLORIDE 101 mmol/L (98-107); COR CA(FOR HYPOALB) 9.4 mg/dL (8.5-10.1); COR NA(FOR HYPERGLY) 137 mmol/L (136-145); CREATININE 1.12 mg/dL (0.70-1.30); SODIUM 135 mmol/L (136-145); eGFR NON BLACK RACES > 60 (>60)
[2021-06-17 08:29] LABS: ABG BASE EXCESS 4.3 mmol/L (-2.0-2.0); ABG HCO3 29.2 mmol/L (22-26)
[2021-06-17 08:30] LABS: ABG ALLEN TEST POS
[2021-06-17] MEDS: ATIVAN TAB 1 MG PO SCH ×2 (09:52→21:30)
[2021-06-17] MEDS: COLACE CAP 100 MG PO SCH ×2 (09:53→21:31)
[2021-06-17] MEDS: LOVENOX INJ 30 MG SYR SC SCH (09:53)
[2021-06-17] MEDS: REMDESIVIR 100 MG in NS 100 ML IV + SPIKE MINIBAG* 120 ML IV SCH (09:56)
[2021-06-17] MEDS: VITAMIN D3 125 mcg (5,000 UNITS) PO SCH (09:57)
[2021-06-17] MEDS: ZINC SULFATE PO SCH ×2 (09:57→21:31)
[2021-06-17] MEDS ORDERED: NS 100 ML IV 100 ML ONE (09:57)
[2021-06-17] MEDS: BROVANA IN SCH ×2 (10:00→20:54)
[2021-06-17] MEDS: PULMICORT NEB TX 0.5 MG NEB SCH ×2 (10:00→20:54)
[2021-06-17] MEDS: VITAMIN A PO SCH (10:21)
[2021-06-17] MEDS: IVERMECTIN PO SCH (10:22)
--- NOTE | 2021-06-17 10:57 | PCM.PROG ---
Progress Note Progress Note for Day of Date of Exam: 06/17/21 Subjective Subjective: Pt is a 40 year old male with past medical history of SHABBIR, admitted for COVID-19 pneumonia with hypoxia. He is currently requiring HHF oxygen at FiO2 94%. Patient is in recliner this morning eating breakfast. He reports feeling really short of breath. He was anxious yesterday about using the smart vest but will attempt today after the purpose of it was explained to him. He continues to cough up copious amounts of blood tinged sputum. Blood appears likely to be pharyngeal from frequent coughing, however will get CTA chest for further evaluation. Labs/imaging: Wbc 7.9, Hgb 14, Plt 238, Na 137, K 4.4, Creatinine 1.12, Glucose 187, CRP 26>47, ABG: pH 7.43, pCO2 44, pO2 50, HCO3 29, O2sat 86%, FiO2 92%. CXR: No significant change in bilateral pneumonia. Treatment course includes: IVF NS@KVO ml/h, Remdesivir, Solumedrol 125mg q8h, scheduled Bronchodilators, Antibiotics: Zosyn, Ivermectin, Ativan prn, IV morphine prn, SSI, immune supporting supplements, supplemental O2, I/S, Respiratory therapy consult, Pneumonia protocol. Wean or titrate oxygen as tolerated. Ordered Actemra 400mg x1, pharmacy awaiting supply, will administer when received. Will have patient prone at times during the day to improve oxygenation. Pt is on high dose steroids that will need to be tapered or weaned down when appropriate. Continue to closely monitor and follow up labs/imaging. Time spent on clinical assessment, reviewing labs and imaging, decision making, and documentation greater than 45 minutes. Past Medical Family Social History Past Med/Fam/Surg Hx: No changes since H&P Allergies: Allergies No Known Drug Allergies Allergy (Verified 06/14/21 23:14) Review of Systems ROS: No change since H&P Vital Signs and I&O's Vital Signs: Temperature 97.0 F Pulse Rate [Left Brachial] 82 Pulse Rate 88 Respiratory Rate 28 Blood Pressure [Left Arm] 100/60 Blood Pressure 131/72 O2 Sat by Pulse Oximetry 94 Intake and Output: Intake & Output 06/14/21 06/15/21 06/16/21 06/17/21 23:59 23:59 23:59 23:59 Intake Total 4470 / 4470 2700 / 2700 880 / 880 Output Total 2024 2600 / 2600 600 / 600 Balance 2444 / 244 100 / 100 280 / 280 Physical Exam Oriented: Normal Eyes: Normal Ear: Normal Nose: Normal Throat: Normal Respiratory: Diminished and Rales Cardiovascular: Normal : Normal Auscultation: Bowel Sounds: Normal Tenderness: Normal Skin: Normal Musculoskeletal: Normal Psychiatric: Normal Mood Description: Anxious and Appropriate Affect: Anxious Speech Pattern: Clear and Appropriate Laboratory and Diagnostics Result Diagrams: 06/17/21 04:56 06/17/21 04:56 Labs: Laboratory WBC 7.9 X10^3/uL (3.6-10.0) 06/17/21 04:56 RBC 4.46 X10^6/uL (4.7-6.0) L 06/17/21 04:56 Hgb 14.0 g/dL (13.5-18.0) 06/17/21 04:56 Hct 40.0 % (42.0-54.0) L 06/17/21 04:56 MCV 89.6 fL (80.0-100.0) 06/17/21 04:56 MCH 31.4 pg (27.0-34.0) 06/17/21 04:56 MCHC 35.0 g/dL (33.0-35.0) 06/17/21 04:56 RDW 13.5 % (11.6-16.5) 06/17/21 04:56 Plt Count 238 X10^3/uL (150.0-450.0) 06/17/21 04:56 MPV 7.7 fL (7.4-11.0) 06/17/21 04:56 Neut % (Auto) 83.8 % (42.0-75.0) H 06/17/21 04:56 Lymph % (Auto) 9.4 % (21.0-51.0) L 06/17/21 04:56 [place] % (Auto) 6.6 % (0.0-13.0) 06/17/21 04:56 Eos % (Auto) 0.1 % (0.9-2.9) L 06/17/21 04:56 Baso % (Auto) 0.1 % (0.2-1.0) L 06/17/21 04:56 Neut # (Auto) 6.6 x10^3/uL (2.2-4.8) H 06/17/21 04:56 Lymph # (Auto) 0.7 X10^3/uL (1.3-2.9) L 06/17/21 04:56 [place] # (Auto) 0.5 x10^3/uL (0.3-0.8) 06/17/21 04:56 Eos # (Auto) 0.0 x10^3/uL (0.0-0.2) 06/17/21 04:56 Baso # (Auto) 0.0 X10^3/uL (0.0-0.1) 06/17/21 04:56 Absolute Nucleated RBC 0.0 /100WBC 06/17/21 04:56 D-Dimer 0.46 ug/ml (0.0-0.57) 06/15/21 08:36 Sample Site Lra 06/17/21 08:25 ABG pH 7.430 (7.35-7.45) 06/17/21 08:25 ABG pCO2 44.0 mmHg (35.0-45.0) 06/17/21 08:25 ABG pO2 50.0 mmHg (80.0-100.0) L 06/17/21 08:25 ABG HCO3 29.2 mmol/L (22-26) H 06/17/21 08:25 ABG O2 Saturation 86.0 % (90-100) L 06/17/21 08:25 ABG Base Excess 4.3 mmol/L (-2.0-2.0) H 06/17/21 08:25 Raul Test Pos 06/17/21 08:25 A-a Gradient 551.0 mmHg 06/17/21 08:25 FiO2 92.0 06/17/21 08:25 Blood Gas Comments Pt liliya well eb 06/17/21 08:25 Sodium 135 mmol/L (136-145) L 06/17/21 04:56 Corrected Sodium 137 mmol/L (136-145) 06/17/21 04:56 Potassium 4.4 mmol/L (3.5-5.1) 06/17/21 04:56 Chloride 101 mmol/L (98-107) 06/17/21 04:56 Carbon Dioxide 26.2 mmol/L (21-32) 06/17/21 04:56 BUN 15 mg/dL (7-18) 06/17/21 04:56 Creatinine 1.12 mg/dL (0.70-1.30) 06/17/21 04:56 Est GFR (MDRD) Af Amer > 60 (>60) 06/17/21 04:56 Est GFR (MDRD) Non-Af > 60 (>60) 06/17/21 04:56 Glucose 187 mg/dL (65-99) H 06/17/21 04:56 POC Glucose (mg/dL) 165 mg/dL (65-99) H 06/17/21 05:56 Calcium 8.0 mg/dL (8.5-10.1) L 06/17/21 04:56 Corrected Calcium 9.4 mg/dL (8.5-10.1) 06/17/21 04:56 Ferritin 3514 ng/mL (26-388) H 06/14/21 23:26 Total Bilirubin 0.40 mg/dL (0.2-1.0) 06/17/21 04:56 AST 45 Units/L (15-37) H 06/17/21 04:56 ALT 39 Units/L (12-78) 06/17/21 04:56 Alkaline Phosphatase 69 Units/L (46-116) 06/17/21 04:56 C-Reactive Protein 47.80 mg/L (0-3.0) H 06/17/21 04:56 B-Natriuretic Peptide 8.7 pg/mL (0-79) 06/14/21 23:26 Total Protein 6.0 g/dL (6.4-8.2) L 06/17/21 04:56 Albumin 2.2 g/dL (3.4-5.0) L 06/17/21 04:56 Globulin 3.8 g/dL (2.5-4.5) 06/17/21 04:56 Albumin/Globulin Ratio 0.6 Ratio (1.1-2.1) L 06/17/21 04:56 SARS-CoV-2 (PCR) Positive (NEGATIVE) A 06/15/21 01:43 Influenza Type A (PCR) Negative (NEGATIVE) 06/15/21 01:43 Influenza Type B (PCR) Negative (NEGATIVE) 06/15/21 01:43 RSV (PCR) Negative (NEGATIVE) 06/15/21 01:43 Plan (1) Pneumonia due to COVID-19 virus: Status: Acute Plan: Per protocol (2) Hypoxia: Status: Acute
--- NOTE | 2021-06-17 11:06 | CT ---
HISTORYHYPOXIA, COVID, HEMOPTYSISSTUDYCTA CHESTCOMPARISONSame day chest radiograph.TECHNIQUECTA chest protocol with axial images from the thoracic inlet to upper abdomen with IV contrast. Sagittal and coronal reformats and MIP images were created. Automated exposure control was utilized.FINDINGSThe visualized thyroid gland appears benign. Non-atherosclerotic normal caliber thoracic aorta. Pulmonary artery is mildly enlarged measuring up to 34 mm medial-lateral image 69 series 5.. No filling defect is identified to suggest pulmonary embolism. The heart is normal in size. No pericardial effusion. No pathologic adenopathy in the thorax. There is mild pneumomediastinum in the posterior compartment such is posterior to the left atrium image 80 series 4. Diffuse hepatic steatosis. No acute osseous abnormality. The trachea and mainstem bronchi appear patent. There are severe bilateral ground-glass opacities, near diffusely throughout both lungs. No pleural effusion or pneumothorax.IMPRESSIONNegative for PE. Severe bilateral ground-glass opacities consistent with COVID 19. Mild pneumomediastinum.Hepatic steatosis.Mildly dilated pulmonary artery consistent with pulmonary artery hypertension.Electronically signed by: Robert Benavides (Jun 17, 2021 11:04:04)
[2021-06-17] MEDS: MORPHINE SULFATE INJ 2 MG INJ IVP PRN (11:34)
[2021-06-17] MEDS ORDERED: TESSALON PERLES PO PRN (13:23)
[2021-06-17 14:40] LABS: ABG BASE EXCESS 5.3 mmol/L (-2.0-2.0)
[2021-06-17 14:41] LABS: ABG HCO3 30.5 mmol/L (22-26)
[2021-06-17 14:42] LABS: ABG ALLEN TEST POS
[2021-06-17 16:22] LABS: ABG ALLEN TEST POS; ABG BASE EXCESS 6.7 mmol/L (-2.0-2.0); ABG HCO3 31.9 mmol/L (22-26)
[2021-06-17] MEDS ORDERED: DIPRIVAN VIAL 20 ML ONE (16:23)
[2021-06-17] MEDS ORDERED: DIPRIVAN PREMIX 1 GRAM IV 1,000 MG/100 ML VIAL ONE (16:23)
[2021-06-17] MEDS ORDERED: NORCURON INJ 10 MG VIAL ONE ×2 (16:36→17:04)
[2021-06-17] MEDS ORDERED: ZEMURON 50 MG VIAL ONE (16:38)
[2021-06-17] MEDS ORDERED: BRIDION ONE (16:38)
[2021-06-17] MEDS ORDERED: VERSED IV PREMIX 100 MG/100 ML IV.SOLN IV ONE (17:02)
[2021-06-17] MEDS ORDERED: NS 50 ML IV 0 ML IV ONE (17:02)
--- NOTE | 2021-06-17 18:06 | RAD ---
EXAM: CHEST X-RAYHISTORY: Verification of NG tube position status post tube placement.TECHNIQUE: AP chest x-ray dated June 17, 2021 at 5:44 PM.COMPARISON: Chest CT dated June 17, 2021 at 10:19 AM.FINDINGS:A nasogastric tube is noted in situ with the distal tip approximately 4.3 cm above the dave (adequate position).There is stable appearance of severe diffuse bilateral lung parenchymal infiltrates in keeping with interstitial pneumonia (e.g. Covid pneumonia) in the appropriate clinical setting; DDX includes mild noncardiogenic pulmonary congestion in the appropriate clinical setting. Clinical correlation is advised.No focal lung consolidation/mass, pleural effusion, or pneumothorax is seen.The heart size and mediastinum are within normal limits. The visualized bony structures are within normal limits.IMPRESSION:1. A nasogastric tube is noted in situ with the distal tip approximately 4.3 cm above the dave (adequate position).2. Stable severe diffuse bilateral lung parenchymal infiltrates in keeping with Covid pneumonia.Electronically signed by: Roque Castillo (Jun 17, 2021 18:04:38)
[2021-06-17] MEDS: VERSED IV PREMIX 100 MG/100 ML IV.SOLN IV PRN (18:10)
[2021-06-17 18:31] LABS: BILIRUBIN,URINE NEGATIVE (NEGATIVE); BLOOD/HEMOGLOBIN,URINE 2+ (NEGATIVE); GLUCOSE, URINE NEGATIVE (NEGATIVE); KETONES,URINE 1+ (NEGATIVE); LEUKOCYTE ESTERASE ,URINE NEGATIVE (NEGATIVE); NITRITES,URINE NEGATIVE (NEGATIVE); PROTEIN,URINE 2+ (NEGATIVE); UROBILINOGEN,URINE 1+ (NORMAL)
[2021-06-17 18:36] LABS: APPEARANCE,URINE CLEAR (CLEAR); COLOR,URINE YELLOW (YELLOW)
[2021-06-17 18:37] LABS: BACTERIA,URINE NEGATIVE /HPF (NEGATIVE); SQUAMOUS EPITHELIAL CELL,UR RARE /HPF (NEGATIVE)
[2021-06-17] MEDS: DIPRIVAN PREMIX 1 GRAM IV 1,000 MG/100 ML VIAL IV PRN (18:41)
[2021-06-17 20:12] LABS: ABG BASE EXCESS 7.6 mmol/L (-2.0-2.0)
[2021-06-17 20:13] LABS: ABG ALLEN TEST POS; ABG HCO3 32.7 mmol/L (22-26)
[2021-06-17] MEDS: LACRI-LUBE S.O.P. AFFEYE SCH (21:29)
[2021-06-17] MEDS: SNACK - Diabetic Appropriate PO SCH (21:30)
[2021-06-17] MEDS: PROTONIX INJ 40 MG VIAL IVP SCH (21:37)
[2021-06-18] MEDS: DIPRIVAN PREMIX 1 GRAM IV 1,000 MG/100 ML VIAL IV PRN ×5 (01:17→21:52)
[2021-06-18] MEDS: VERSED IV PREMIX 100 MG/100 ML IV.SOLN IV PRN ×2 (01:24→21:53)
[2021-06-18] MEDS: LACRI-LUBE S.O.P. AFFEYE SCH ×3 (03:12→21:03)
[2021-06-18] MEDS: ASCORBIC ACID INJ MULTI-DOSE VIAL 1,500 MG in NS 50 ML IV 50 ML IV SCH ×3 (04:30→20:08)
[2021-06-18] MEDS: ZOSYN VIAL 3.375 GRAMS 3.375 G in NS 100 ML IV + SPIKE MINIBAG* 100 ML IV SCH ×3 (05:24→21:03)
[2021-06-18] MEDS: SOLU-Medrol 125 MG VIAL IVP SCH ×3 (05:25→17:39)
[2021-06-18] MEDS: NS 1000 ML 1,000 ML IV SCH ×3 (05:27→13:58)
[2021-06-18 05:41] LABS: BASOPHILS % (AUTO) 0 % (0.2-1.0); HEMATOCRIT 40.3 % (42.0-54.0); HEMOGLOBIN 13.9 g/dL (13.5-18.0); LYMPHOCYTES # (AUTO) 0.8 X10^3/uL (1.3-2.9); LYMPHOCYTES % (AUTO) 5.8 % (21.0-51.0); MEAN CORPUSCULAR HEMOGLOBIN 30.8 pg (27.0-34.0); MEAN CORPUSCULAR HGB CONC 34.5 g/dL (33.0-35.0); MEAN CORPUSCULAR VOLUME 89.3 fL (80.0-100.0); MEAN PLATELET VOLUME 8.5 fL (7.4-11.0); MONOCYTES # (AUTO) 0.8 x10^3/uL (0.3-0.8); NEUTROPHILS # (AUTO) 12.3 x10^3/uL (2.2-4.8); NEUTROPHILS % (AUTO) 88.2 % (42.0-75.0); PLATELET COUNT 232 X10^3/uL (150.0-450.0); RED BLOOD COUNT 4.51 X10^6/uL (4.7-6.0); RED CELL DISTRIBUTION WIDTH 13.4 % (11.6-16.5)
[2021-06-18 05:58] LABS: BLOOD UREA NITROGEN 18 mg/dL (7-18); CARBON DIOXIDE 31.3 mmol/L (21-32); CHLORIDE 102 mmol/L (98-107); CREATININE 1.07 mg/dL (0.70-1.30); SODIUM 136 mmol/L (136-145); eGFR NON BLACK RACES > 60 (>60)
[2021-06-18 05:59] LABS: ALANINE AMINOTRANSFERASE 35 Units/L (12-78); ALKALINE PHOSPHATASE 63 Units/L (46-116); ASPARTATE AMINO TRANSFERASE 33 Units/L (15-37); CALCIUM 8.1 mg/dL (8.5-10.1); COR CA(FOR HYPOALB) 9.7 mg/dL (8.5-10.1); COR NA(FOR HYPERGLY) 137 mmol/L (136-145); TOTAL PROTEIN 5.9 g/dL (6.4-8.2)
[2021-06-18 06:29] LABS: ABG BASE EXCESS 6.4 mmol/L (-2.0-2.0)
[2021-06-18 06:30] LABS: ABG ALLEN TEST POS; ABG HCO3 30.5 mmol/L (22-26)
--- NOTE | 2021-06-18 07:45 | RAD ---
HISTORYHYPOXIA, COVID, HEMOPTYSIS NO HX. SX ORHTO.STUDYCHEST, 1 VIEWCOMPARISONAugust 2020FINDINGSThe patient is rotated. The cardiac silhouette is stable. Images again demonstrate bilateral infiltrate/consolidation right greater than left similar to prior exam. Endotracheal tube placement is demonstrated with the tip projecting at the level of the clavicles.IMPRESSIONPersistent bilateral infiltrate right greater than left similar to prior exam.Electronically signed by: SMITHA VARGAS (Jun 18, 2021 07:43:20)
[2021-06-18] MEDS: PULMICORT NEB TX 0.5 MG NEB SCH ×2 (09:00→20:53)
[2021-06-18] MEDS: BROVANA IN SCH ×2 (09:00→20:53)
[2021-06-18] MEDS ORDERED: REMDESIVIR IV ONE (09:16)
[2021-06-18] MEDS ORDERED: NS 250 ML IV 250 ML IV ONE (09:17)
[2021-06-18] MEDS: ATIVAN TAB 1 MG PO SCH (10:03)
[2021-06-18] MEDS: COLACE CAP 100 MG PO SCH (10:03)
[2021-06-18] MEDS: PROTONIX INJ 40 MG VIAL IVP SCH ×3 (10:04→20:08)
[2021-06-18] MEDS: REMDESIVIR 100 MG in NS 100 ML IV + SPIKE MINIBAG* 120 ML IV SCH (10:04)
[2021-06-18] MEDS: IVERMECTIN PO SCH (10:04)
[2021-06-18] MEDS: VITAMIN D3 125 mcg (5,000 UNITS) PO SCH (10:05)
[2021-06-18] MEDS: VITAMIN A PO SCH (10:05)
[2021-06-18] MEDS: ZINC SULFATE PO SCH (10:05)
[2021-06-18] MEDS ORDERED: PERIACTIN TAB 4 MG PO PRN (11:11)
[2021-06-18] MEDS ORDERED: PEPCID TAB 40 MG PO SCH (11:15)
[2021-06-18] MEDS ORDERED: VITAMIN D (1.25MG) PO SCH (11:15)
[2021-06-18] MEDS ORDERED: VITAMIN A PO SCH (11:30)
--- NOTE | 2021-06-18 11:44 | RAD ---
HISTORYswelling of upper chestSTUDYCHEST x-ray, 1 VIEWCOMPARISONX-ray 06/18/2021FINDINGSEndotracheal tube terminates 5.6 cm above the dave. There is moderate pneumomediastinum with free air in the supraclavicular regions.Prominent bilateral lung infiltrates are likely due to COVID-19 pneumonia. Heart is probably normal in size. No suggestion of a pneumothorax.IMPRESSIONNo pneumomediastinum with free air in the supraclavicular region and lower neck.Prominent bilateral COVID-19 pneumonia is similar to prior study.Electronically signed by: Alessandro James (Jun 18, 2021 11:42:07)
[2021-06-18] MEDS ORDERED: PEPCID TAB 40 MG NG SCH (11:45)
[2021-06-18] MEDS ORDERED: LEVOPHED INJ 8 MG in D5W 250 ML IV 242 ML IV PRN (11:46)
[2021-06-18] MEDS ORDERED: ATIVAN TAB 1 MG NG SCH (12:00)
[2021-06-18] MEDS ORDERED: THIAMINE HCL INJ IVP SCH (12:00)
[2021-06-18] MEDS ORDERED: ATIVAN TAB 1 MG NG PRN (12:00)
[2021-06-18] MEDS ORDERED: ASCORBIC ACID INJ MULTI-DOSE VIAL 1,500 MG in NS 100 ML IV 100 ML IV SCH (12:00)
[2021-06-18] MEDS ORDERED: FLUVOXAMINE MALEATE PO SCH (12:00)
[2021-06-18] MEDS ORDERED: PHARMACY CONSULT - IVERMECTIN XX SCH (12:00)
[2021-06-18] MEDS ORDERED: LIPITOR TAB 80 MG PO SCH (12:00)
[2021-06-18] MEDS ORDERED: PHARMACY CONSULT - LOVENOX XX SCH (12:00)
[2021-06-18] MEDS ORDERED: LIPITOR TAB 80 MG NG SCH (12:00)
[2021-06-18] MEDS ORDERED: ZINC SULFATE PO SCH (12:00)
[2021-06-18] MEDS ORDERED: FLUVOXAMINE MALEATE NG SCH (12:00)
[2021-06-18] MEDS: NORCURON INJ 10 MG VIAL 50 MG in NS 50 ML IV 50 ML IV PRN ×2 (14:17→20:00)
[2021-06-18 15:06] LABS: ABG BASE EXCESS 5.1 mmol/L (-2.0-2.0)
[2021-06-18 15:07] LABS: ABG ALLEN TEST POS; ABG HCO3 30.5 mmol/L (22-26)
--- NOTE | 2021-06-18 15:50 | RAD ---
EXAM: CHEST X-RAYHISTORY: COVID-19 positive. Worsening hypoxia.TECHNIQUE: AP chest x-ray dated June 18, 2021 at 3:09 PM.COMPARISON: CXR dated June 18, 2021 at 11:15 AM.FINDINGS:Stable appearance of severe diffuse bilateral lung parenchymal infiltrates in keeping with acute and multi lobar pneumonia (e.g. Covid pneumonia) in the appropriate clinical setting; DDX includes concomitant noncardiogenic pulmonary congestion in the appropriate clinical setting. Clinical correlation is advised.No gross pleural effusion, or pneumothorax is seen. The heart size and mediastinum are within normal limits. The visualized bony structures are within normal limits. An endotracheal tube is again noted in situ with the distal tip approximately 7 cm above the dave.IMPRESSION:1. Stable appearance of severe diffuse bilateral lung parenchymal infiltrates in keeping with acute and multi lobar pneumonia (e.g. Covid pneumonia) in the appropriate clinical setting; DDX includes concomitant noncardiogenic pulmonary congestion in the appropriate clinical setting. Clinical correlation is advised.2. Recommend clinical correlation and appropriate follow-up x-ray to ensure interval clearance.3. Consider follow-up evaluation with noncontrast chest CT for further assessment as clinically warranted.Electronically signed by: Roque Castillo (Jun 18, 2021 15:48:32)
[2021-06-18] MEDS ORDERED: LOVENOX INJ 60 MG SYR SC ONE (19:46)
[2021-06-18] MEDS: LOVENOX INJ 60 MG SYR SC SCH (20:07)
[2021-06-18] MEDS: HumuLIN R SUBCUT PRN (20:08)
[2021-06-18] MEDS ORDERED: PULMICORT NEB TX 0.5 MG NEB SCH (21:00)
[2021-06-18] MEDS ORDERED: BROVANA IN SCH (21:00)
[2021-06-18] MEDS ORDERED: LACRI-LUBE S.O.P. AFFEYE SCH (21:00)
[2021-06-18] MEDS: SNACK - Diabetic Appropriate PO SCH (21:03)
[2021-06-19] MEDS: SOLU-Medrol 125 MG VIAL IVP SCH ×4 (00:52→22:30)
[2021-06-19] MEDS: DIPRIVAN PREMIX 1 GRAM IV 1,000 MG/100 ML VIAL IV PRN ×6 (03:15→21:36)
[2021-06-19] MEDS: ASCORBIC ACID INJ MULTI-DOSE VIAL 1,500 MG in NS 50 ML IV 50 ML IV SCH ×3 (03:24→22:30)
[2021-06-19 05:02] LABS: ABG BASE EXCESS 8.3 mmol/L (-2.0-2.0)
[2021-06-19 05:04] LABS: ABG ALLEN TEST POS; ABG HCO3 35.1 mmol/L (22-26)
[2021-06-19 05:17] LABS: BASOPHILS % (AUTO) 0.1 % (0.2-1.0); HEMATOCRIT 41.3 % (42.0-54.0); HEMOGLOBIN 14.2 g/dL (13.5-18.0); LYMPHOCYTES # (AUTO) 0.4 X10^3/uL (1.3-2.9); LYMPHOCYTES % (AUTO) 2.3 % (21.0-51.0); MEAN CORPUSCULAR HEMOGLOBIN 30.7 pg (27.0-34.0); MEAN CORPUSCULAR HGB CONC 34.3 g/dL (33.0-35.0); MEAN CORPUSCULAR VOLUME 89.5 fL (80.0-100.0); MEAN PLATELET VOLUME 7.6 fL (7.4-11.0); MONOCYTES % (AUTO) 5.7 % (0.0-13.0); NEUTROPHILS # (AUTO) 15.6 x10^3/uL (2.2-4.8); NEUTROPHILS % (AUTO) 91.9 % (42.0-75.0); PLATELET COUNT 269 X10^3/uL (150.0-450.0); RED BLOOD COUNT 4.62 X10^6/uL (4.7-6.0)
[2021-06-19 05:33] LABS: ALANINE AMINOTRANSFERASE 30 Units/L (12-78); ALBUMIN 1.9 g/dL (3.4-5.0); ALKALINE PHOSPHATASE 63 Units/L (46-116); ASPARTATE AMINO TRANSFERASE 21 Units/L (15-37); BLOOD UREA NITROGEN 18 mg/dL (7-18); CALCIUM 7.9 mg/dL (8.5-10.1); CARBON DIOXIDE 32.6 mmol/L (21-32); CHLORIDE 104 mmol/L (98-107); COR CA(FOR HYPOALB) 9.6 mg/dL (8.5-10.1); COR NA(FOR HYPERGLY) 142 mmol/L (136-145); CREATININE 0.98 mg/dL (0.70-1.30); SODIUM 139 mmol/L (136-145); TOTAL PROTEIN 5.7 g/dL (6.4-8.2); eGFR NON BLACK RACES > 60 (>60)
[2021-06-19 05:54] LABS: BAND NEUTROPHILS % 1 % (0-10); PLATELET MORPHOLOGY COMMENT NORMAL (NORMAL)
[2021-06-19] MEDS: ZOSYN VIAL 3.375 GRAMS 3.375 G in NS 100 ML IV + SPIKE MINIBAG* 100 ML IV SCH ×3 (06:06→22:54)
[2021-06-19] MEDS: NORCURON INJ 10 MG VIAL 50 MG in NS 50 ML IV 50 ML IV PRN (06:07)
[2021-06-19] MEDS: VERSED IV PREMIX 100 MG/100 ML IV.SOLN IV PRN ×2 (06:07→22:55)
--- NOTE | 2021-06-19 07:44 | RAD ---
HISTORYCOVID PNEUMONIA; NG TUBE PLACEMENT Relevant Clinical InformationSTUDYCHEST, 1 VIEWCOMPARISONgust 2020 .FINDINGSThe patient is rotated. The cardiac silhouette is relatively stable. Extensive diffuse infiltrates are again demonstrated bilaterally with no significant interval improvement since prior exam. Endotracheal tube placement is noted with the tip projecting at the level of the clavicles. Nasogastric tube placement is demonstrated as well with the tip extending beyond the inferior margin of the image over the left upper quadrant of the abdomenIMPRESSIONExtensive diffuse infiltrate bilaterally with no significant interval improvement since prior exam.Electronically signed by: SMITHA VARGAS (Jun 19, 2021 07:42:18)
[2021-06-19] MEDS: BROVANA IN SCH ×2 (09:00→20:40)
[2021-06-19] MEDS: PULMICORT NEB TX 0.5 MG NEB SCH ×2 (09:00→20:40)
[2021-06-19] MEDS: LOVENOX INJ 60 MG SYR SC SCH ×2 (10:15→22:58)
[2021-06-19] MEDS: PROTONIX INJ 40 MG VIAL IVP SCH ×2 (10:27→22:53)
[2021-06-19] MEDS: IVERMECTIN NG SCH (10:27)
[2021-06-19 10:59] VITALS: BMI 34.1
--- NOTE | 2021-06-19 11:37 | RAD ---
HISTORYNG TUBE PLACEMENTSTUDYKUB x-ray one viewCOMPARISONNoneFINDINGSNo visible nasogastric tube is seen. Suggest removal of tube and re-insertion. Probable 5 mm stone in the right kidney. Right femoral line is seen.IMPRESSIONNo visible nasogastric tube. Chest x-ray following this study shows passage of the tube into the stomach.Electronically signed by: Alessandro James (Jun 19, 2021 11:35:15)
[2021-06-19] MEDS: LACRI-LUBE S.O.P. AFFEYE SCH ×2 (11:47→22:53)
[2021-06-19] MEDS: SNACK - Diabetic Appropriate PO SCH (22:53)
[2021-06-19] MEDS: NS 1000 ML 1,000 ML IV SCH (22:59)
[2021-06-20] MEDS ORDERED: NORCURON INJ 10 MG VIAL ONE (00:06)
[2021-06-20] MEDS ORDERED: NS 50 ML IV 50 ML IV ONE (00:07)
[2021-06-20] MEDS ORDERED: DIPRIVAN ONE (00:07)
[2021-06-20] MEDS: SOLU-Medrol 125 MG VIAL IVP SCH ×4 (01:11→18:22)
[2021-06-20] MEDS: NORCURON INJ 10 MG VIAL 50 MG in NS 50 ML IV 50 ML IV PRN ×3 (02:03→22:05)
[2021-06-20] MEDS: DIPRIVAN PREMIX 1 GRAM IV 1,000 MG/100 ML VIAL IV PRN ×5 (02:03→22:55)
[2021-06-20] MEDS: ASCORBIC ACID INJ MULTI-DOSE VIAL 1,500 MG in NS 50 ML IV 50 ML IV SCH ×3 (02:46→22:45)
[2021-06-20 04:35] LABS: ABG BASE EXCESS 10.9 mmol/L (-2.0-2.0)
[2021-06-20 04:36] LABS: ABG HCO3 38.7 mmol/L (22-26)
[2021-06-20 04:37] LABS: ABG ALLEN TEST POS
[2021-06-20 05:28] LABS: BASOPHILS % (AUTO) 0.1 % (0.2-1.0); HEMATOCRIT 40.6 % (42.0-54.0); HEMOGLOBIN 13.9 g/dL (13.5-18.0); LYMPHOCYTES # (AUTO) 0.3 X10^3/uL (1.3-2.9); LYMPHOCYTES % (AUTO) 1.7 % (21.0-51.0); MEAN CORPUSCULAR HEMOGLOBIN 30.8 pg (27.0-34.0); MEAN CORPUSCULAR HGB CONC 34.2 g/dL (33.0-35.0); MEAN CORPUSCULAR VOLUME 89.8 fL (80.0-100.0); MONOCYTES # (AUTO) 0.9 x10^3/uL (0.3-0.8); MONOCYTES % (AUTO) 4.4 % (0.0-13.0); NEUTROPHILS # (AUTO) 18.8 x10^3/uL (2.2-4.8); NEUTROPHILS % (AUTO) 93.8 % (42.0-75.0); PLATELET COUNT 219 X10^3/uL (150.0-450.0); RED BLOOD COUNT 4.53 X10^6/uL (4.7-6.0); RED CELL DISTRIBUTION WIDTH 13.5 % (11.6-16.5)
[2021-06-20 05:29] LABS: BLOOD UREA NITROGEN 20 mg/dL (7-18); CALCIUM 7.9 mg/dL (8.5-10.1); CARBON DIOXIDE 34.9 mmol/L (21-32); CHLORIDE 107 mmol/L (98-107); COR NA(FOR HYPERGLY) 147 mmol/L (136-145); CREATININE 0.99 mg/dL (0.70-1.30); SODIUM 145 mmol/L (136-145); eGFR NON BLACK RACES > 60 (>60)
[2021-06-20] MEDS: ZOSYN VIAL 3.375 GRAMS 3.375 G in NS 100 ML IV + SPIKE MINIBAG* 100 ML IV SCH ×3 (05:30→23:00)
[2021-06-20] MEDS: VERSED IV PREMIX 100 MG/100 ML IV.SOLN IV PRN (05:31)
[2021-06-20] MEDS: HumuLIN R SUBCUT PRN (05:52)
[2021-06-20 06:17] LABS: BAND NEUTROPHILS % 2 % (0-10); PLATELET MORPHOLOGY COMMENT NORMAL (NORMAL)
--- NOTE | 2021-06-20 07:40 | RAD ---
HISTORYET TUBE PLACEMENTSTUDYCHEST, 1 VIEWCOMPARISONOne day prior.TECHNIQUEAP view of the chestFINDINGSET tube in good position. NG tube in good position. Cardiac and mediastinal contours are within normal limits. No significant change in bilateral airspace and interstitial opacities. No definite pleural effusion or pneumothorax.IMPRESSIONET and NG tubes in good position. Stable COVID 19 pneumonia.Electronically signed by: Robert Benavides (Jun 20, 2021 07:39:28)
[2021-06-20] MEDS: BROVANA IN SCH ×2 (09:00→21:00)
[2021-06-20] MEDS: PULMICORT NEB TX 0.5 MG NEB SCH ×2 (09:00→21:00)
[2021-06-20] MEDS ORDERED: VITAMIN D3 125 mcg (5,000 UNITS) PO SCH (09:00)
[2021-06-20] MEDS ORDERED: VITAMIN A PO SCH (09:00)
[2021-06-20] MEDS: LACRI-LUBE S.O.P. AFFEYE SCH ×3 (09:36→22:45)
[2021-06-20] MEDS: IVERMECTIN NG SCH (09:36)
[2021-06-20] MEDS: PROTONIX INJ 40 MG VIAL IVP SCH (09:37)
[2021-06-20] MEDS: LOVENOX INJ 60 MG SYR SC SCH ×2 (09:37→22:54)
[2021-06-20] MEDS: VERSED 100 MG in NS 100 ML IV 80 ML IV PRN ×2 (12:58→22:06)
[2021-06-20 21:51] LABS: BILIRUBIN,URINE NEGATIVE (NEGATIVE); BLOOD/HEMOGLOBIN,URINE 5+ (NEGATIVE); GLUCOSE, URINE NEGATIVE (NEGATIVE); KETONES,URINE NEGATIVE (NEGATIVE); LEUKOCYTE ESTERASE ,URINE NEGATIVE (NEGATIVE); NITRITES,URINE NEGATIVE (NEGATIVE); PROTEIN,URINE 2+ (NEGATIVE); UROBILINOGEN,URINE 2+ (NORMAL)
[2021-06-20 22:04] LABS: APPEARANCE,URINE HAZY (CLEAR); COLOR,URINE YELLOW (YELLOW)
[2021-06-20 22:05] LABS: BACTERIA,URINE TRACE /HPF (NEGATIVE); RBC,URINE TNTC /HPF (0-3); SQUAMOUS EPITHELIAL CELL,UR RARE /HPF (NEGATIVE)
[2021-06-20 22:06] LABS: MUCUS,URINE FEW /HPF (NEGATIVE); OTHER CRYSTALS,URINE MANY /HPF (NEGATIVE); YEAST,URINE MODERATE /HPF (NEGATIVE)
[2021-06-20] MEDS: SNACK - Diabetic Appropriate PO SCH (22:45)
[2021-06-21] MEDS ORDERED: OFIRMEV IV 1000 MG VIAL 1,000 MG/100 ML VIAL IV ONE (00:17)
[2021-06-21] MEDS: PROTONIX INJ 40 MG VIAL IVP SCH ×3 (00:25→20:31)
[2021-06-21] MEDS: SOLU-Medrol 125 MG VIAL IVP SCH ×4 (00:52→18:41)
[2021-06-21] MEDS: OFIRMEV IV 1000 MG VIAL 1,000 MG/100 ML VIAL IV PRN (01:19)
[2021-06-21] MEDS: NS 1000 ML 1,000 ML IV SCH ×2 (01:20→12:29)
[2021-06-21] MEDS: DIPRIVAN PREMIX 1 GRAM IV 1,000 MG/100 ML VIAL IV PRN ×6 (02:06→20:00)
[2021-06-21] MEDS: VERSED 100 MG in NS 100 ML IV 80 ML IV PRN ×3 (02:07→17:36)
[2021-06-21] MEDS: ASCORBIC ACID INJ MULTI-DOSE VIAL 1,500 MG in NS 50 ML IV 50 ML IV SCH ×3 (02:51→20:32)
[2021-06-21] MEDS ORDERED: NORCURON INJ 10 MG VIAL ONE (04:54)
[2021-06-21] MEDS ORDERED: NS 50 ML IV 50 ML IV ONE (04:54)
[2021-06-21 05:04] LABS: BASOPHILS % (AUTO) 0.1 % (0.2-1.0); HEMATOCRIT 41.3 % (42.0-54.0); LYMPHOCYTES # (AUTO) 0.4 X10^3/uL (1.3-2.9); LYMPHOCYTES % (AUTO) 1.7 % (21.0-51.0); MEAN CORPUSCULAR HEMOGLOBIN 30.7 pg (27.0-34.0); MEAN CORPUSCULAR HGB CONC 33.8 g/dL (33.0-35.0); MEAN CORPUSCULAR VOLUME 90.6 fL (80.0-100.0); MEAN PLATELET VOLUME 8.5 fL (7.4-11.0); MONOCYTES # (AUTO) 0.9 x10^3/uL (0.3-0.8); MONOCYTES % (AUTO) 4.1 % (0.0-13.0); NEUTROPHILS # (AUTO) 19.9 x10^3/uL (2.2-4.8); NEUTROPHILS % (AUTO) 94.1 % (42.0-75.0); PLATELET COUNT 220 X10^3/uL (150.0-450.0); RED BLOOD COUNT 4.55 X10^6/uL (4.7-6.0); RED CELL DISTRIBUTION WIDTH 13.4 % (11.6-16.5); WHITE BLOOD COUNT 21.2 X10^3/uL (3.6-10.0)
[2021-06-21 05:08] LABS: BLOOD UREA NITROGEN 24 mg/dL (7-18); CALCIUM 7.7 mg/dL (8.5-10.1); CHLORIDE 107 mmol/L (98-107); COR NA(FOR HYPERGLY) 147 mmol/L (136-145); CREATININE 1.02 mg/dL (0.70-1.30); SODIUM 145 mmol/L (136-145); eGFR NON BLACK RACES > 60 (>60)
[2021-06-21] MEDS: ZOSYN VIAL 3.375 GRAMS 3.375 G in NS 100 ML IV + SPIKE MINIBAG* 100 ML IV SCH ×3 (05:17→21:00)
[2021-06-21 05:26] LABS: PLATELET MORPHOLOGY COMMENT NORMAL (NORMAL)
[2021-06-21] MEDS: HumuLIN R SUBCUT PRN ×3 (05:35→20:30)
[2021-06-21 05:59] LABS: ABG BASE EXCESS 12.7 mmol/L (-2.0-2.0)
[2021-06-21 06:00] LABS: ABG ALLEN TEST POS; ABG HCO3 38.9 mmol/L (22-26)
[2021-06-21] MEDS: NORCURON INJ 10 MG VIAL 50 MG in NS 50 ML IV 50 ML IV PRN ×2 (07:30→18:14)
[2021-06-21] MEDS: PULMICORT NEB TX 0.5 MG NEB SCH ×2 (09:38→20:37)
[2021-06-21] MEDS: BROVANA IN SCH ×2 (09:38→20:37)
[2021-06-21] MEDS: LACRI-LUBE S.O.P. AFFEYE SCH ×2 (09:44→20:31)
[2021-06-21] MEDS: LOVENOX INJ 60 MG SYR SC SCH ×2 (09:45→20:31)
[2021-06-21] MEDS: SNACK - Diabetic Appropriate PO SCH (20:31)
[2021-06-21 22:36] LABS: ALANINE AMINOTRANSFERASE 42 Units/L (12-78); ALBUMIN 1.9 g/dL (3.4-5.0); ALKALINE PHOSPHATASE 58 Units/L (46-116); ASPARTATE AMINO TRANSFERASE 37 Units/L (15-37); COR CA(FOR HYPOALB) 9.4 mg/dL (8.5-10.1); TOTAL PROTEIN 5.5 g/dL (6.4-8.2)
[2021-06-21 23:21] LABS: ALANINE AMINOTRANSFERASE 26 Units/L (12-78); ALKALINE PHOSPHATASE 59 Units/L (46-116); ASPARTATE AMINO TRANSFERASE 23 Units/L (15-37); COR CA(FOR HYPOALB) 9.5 mg/dL (8.5-10.1); TOTAL PROTEIN 5.5 g/dL (6.4-8.2)
[2021-06-22] MEDS: SOLU-Medrol 125 MG VIAL IVP SCH ×4 (00:08→19:36)
[2021-06-22] MEDS: VERSED 100 MG in NS 100 ML IV 80 ML IV PRN ×4 (00:49→20:33)
[2021-06-22] MEDS: NORCURON INJ 10 MG VIAL 50 MG in NS 50 ML IV 50 ML IV PRN ×3 (00:52→23:07)
[2021-06-22] MEDS: DIPRIVAN PREMIX 1 GRAM IV 1,000 MG/100 ML VIAL IV PRN ×5 (02:32→21:12)
[2021-06-22] MEDS: ASCORBIC ACID INJ MULTI-DOSE VIAL 1,500 MG in NS 50 ML IV 50 ML IV SCH ×3 (04:44→20:30)
[2021-06-22 04:49] LABS: ABG BASE EXCESS 15.6 mmol/L (-2.0-2.0)
[2021-06-22 04:50] LABS: ABG ALLEN TEST POS; ABG HCO3 42.4 mmol/L (22-26)
[2021-06-22] MEDS: ZOSYN VIAL 3.375 GRAMS 3.375 G in NS 100 ML IV + SPIKE MINIBAG* 100 ML IV SCH ×3 (05:13→22:05)
[2021-06-22] MEDS: HumuLIN R SUBCUT PRN ×4 (05:34→22:29)
[2021-06-22 06:13] LABS: ALANINE AMINOTRANSFERASE 32 Units/L (12-78); ALBUMIN 1.4 g/dL (3.4-5.0); ALKALINE PHOSPHATASE 56 Units/L (46-116); ASPARTATE AMINO TRANSFERASE 29 Units/L (15-37); BLOOD UREA NITROGEN 29 mg/dL (7-18); CALCIUM 7.9 mg/dL (8.5-10.1); CARBON DIOXIDE 36.2 mmol/L (21-32); CHLORIDE 109 mmol/L (98-107); COR NA(FOR HYPERGLY) 149 mmol/L (136-145); CREATININE 0.82 mg/dL (0.70-1.30); SODIUM 147 mmol/L (136-145); TOTAL PROTEIN 5.3 g/dL (6.4-8.2); eGFR NON BLACK RACES > 60 (>60)
[2021-06-22 06:14] LABS: BASOPHILS % (AUTO) 0.1 % (0.2-1.0); HEMATOCRIT 40.7 % (42.0-54.0); HEMOGLOBIN 13.5 g/dL (13.5-18.0); LYMPHOCYTES # (AUTO) 0.4 X10^3/uL (1.3-2.9); LYMPHOCYTES % (AUTO) 2.1 % (21.0-51.0); MEAN CORPUSCULAR HEMOGLOBIN 30.3 pg (27.0-34.0); MEAN CORPUSCULAR HGB CONC 33.1 g/dL (33.0-35.0); MEAN CORPUSCULAR VOLUME 91.6 fL (80.0-100.0); MEAN PLATELET VOLUME 8.3 fL (7.4-11.0); MONOCYTES # (AUTO) 0.6 x10^3/uL (0.3-0.8); MONOCYTES % (AUTO) 3.2 % (0.0-13.0); NEUTROPHILS # (AUTO) 17.2 x10^3/uL (2.2-4.8); NEUTROPHILS % (AUTO) 94.6 % (42.0-75.0); PLATELET COUNT 204 X10^3/uL (150.0-450.0); RED BLOOD COUNT 4.44 X10^6/uL (4.7-6.0); RED CELL DISTRIBUTION WIDTH 13.3 % (11.6-16.5); WHITE BLOOD COUNT 18.2 X10^3/uL (3.6-10.0)
[2021-06-22 07:54] LABS: BAND NEUTROPHILS % 4 % (0-10); PLATELET MORPHOLOGY COMMENT NORMAL (NORMAL)
[2021-06-22] MEDS: LACRI-LUBE S.O.P. AFFEYE SCH ×2 (08:40→22:03)
[2021-06-22] MEDS: LOVENOX INJ 60 MG SYR SC SCH ×2 (08:40→22:29)
[2021-06-22] MEDS: PROTONIX INJ 40 MG VIAL IVP SCH ×2 (08:41→22:07)
[2021-06-22] MEDS: BROVANA IN SCH ×2 (08:41→20:11)
[2021-06-22] MEDS: PULMICORT NEB TX 0.5 MG NEB SCH ×2 (08:41→20:11)
[2021-06-22] MEDS: ZINC SULFATE PO SCH ×2 (10:00→22:04)
[2021-06-22] MEDS: FLUVOXAMINE MALEATE PO SCH ×2 (10:00→22:03)
[2021-06-22] MEDS: CYTOTEC NG SCH ×4 (10:00→22:03)
[2021-06-22] MEDS: LIPITOR TAB 80 MG PO SCH (10:00)
[2021-06-22] MEDS: PEPCID TAB 40 MG PO SCH ×2 (10:00→22:04)
[2021-06-22] MEDS: VITAMIN A PO SCH (10:00)
[2021-06-22] MEDS: NS 1000 ML 1,000 ML IV SCH (12:55)
[2021-06-22] MEDS: VITAMIN D3 125 mcg (5,000 UNITS) PO SCH (13:38)
[2021-06-22] MEDS: SNACK - Diabetic Appropriate PO SCH (21:12)
[2021-06-22] MEDS: MELATONIN PO SCH (22:07)
[2021-06-23] MEDS: DIPRIVAN PREMIX 1 GRAM IV 1,000 MG/100 ML VIAL IV PRN ×6 (01:25→21:00)
[2021-06-23] MEDS: SOLU-Medrol 125 MG VIAL IVP SCH ×4 (01:36→17:00)
[2021-06-23] MEDS: VERSED 100 MG in NS 100 ML IV 80 ML IV PRN ×2 (03:26→12:10)
[2021-06-23] MEDS: ASCORBIC ACID INJ MULTI-DOSE VIAL 1,500 MG in NS 50 ML IV 50 ML IV SCH ×3 (03:37→21:09)
[2021-06-23 05:55] LABS: ABG BASE EXCESS 15.1 mmol/L (-2.0-2.0)
[2021-06-23 05:57] LABS: ABG ALLEN TEST POS; ABG HCO3 42.1 mmol/L (22-26)
[2021-06-23] MEDS: ZOSYN VIAL 3.375 GRAMS 3.375 G in NS 100 ML IV + SPIKE MINIBAG* 100 ML IV SCH ×3 (06:08→22:00)
[2021-06-23 06:13] LABS: BASOPHILS % (AUTO) 0.1 % (0.2-1.0); HEMATOCRIT 39.6 % (42.0-54.0); HEMOGLOBIN 13.4 g/dL (13.5-18.0); LYMPHOCYTES # (AUTO) 0.3 X10^3/uL (1.3-2.9); LYMPHOCYTES % (AUTO) 1.8 % (21.0-51.0); MEAN CORPUSCULAR HEMOGLOBIN 30.8 pg (27.0-34.0); MEAN CORPUSCULAR HGB CONC 33.7 g/dL (33.0-35.0); MEAN CORPUSCULAR VOLUME 91.3 fL (80.0-100.0); MEAN PLATELET VOLUME 8.9 fL (7.4-11.0); MONOCYTES # (AUTO) 0.7 x10^3/uL (0.3-0.8); MONOCYTES % (AUTO) 3.9 % (0.0-13.0); NEUTROPHILS # (AUTO) 16.4 x10^3/uL (2.2-4.8); NEUTROPHILS % (AUTO) 94.2 % (42.0-75.0); PLATELET COUNT 244 X10^3/uL (150.0-450.0); RED BLOOD COUNT 4.34 X10^6/uL (4.7-6.0); RED CELL DISTRIBUTION WIDTH 13.4 % (11.6-16.5); WHITE BLOOD COUNT 17.4 X10^3/uL (3.6-10.0)
[2021-06-23 06:19] LABS: ALANINE AMINOTRANSFERASE 52 Units/L (12-78); ALBUMIN 1.5 g/dL (3.4-5.0); ALKALINE PHOSPHATASE 68 Units/L (46-116); ASPARTATE AMINO TRANSFERASE 30 Units/L (15-37); BLOOD UREA NITROGEN 30 mg/dL (7-18); CALCIUM 7.8 mg/dL (8.5-10.1); CARBON DIOXIDE 38.1 mmol/L (21-32); CHLORIDE 111 mmol/L (98-107); COR CA(FOR HYPOALB) 9.8 mg/dL (8.5-10.1); COR NA(FOR HYPERGLY) 152 mmol/L (136-145); CREATININE 0.84 mg/dL (0.70-1.30); SODIUM 149 mmol/L (136-145); TOTAL PROTEIN 5.3 g/dL (6.4-8.2); eGFR NON BLACK RACES > 60 (>60)
[2021-06-23 08:38] LABS: PLATELET MORPHOLOGY COMMENT NORMAL (NORMAL)
[2021-06-23] MEDS: BROVANA IN SCH ×2 (09:30→20:45)
[2021-06-23] MEDS: PULMICORT NEB TX 0.5 MG NEB SCH ×2 (09:30→20:45)
[2021-06-23] MEDS: NORCURON INJ 10 MG VIAL 50 MG in NS 50 ML IV 50 ML IV PRN ×2 (10:12→21:05)
[2021-06-23] MEDS: CYTOTEC NG SCH ×4 (10:46→21:11)
[2021-06-23] MEDS: LACRI-LUBE S.O.P. AFFEYE SCH ×2 (10:47→21:11)
[2021-06-23] MEDS: LIPITOR TAB 80 MG PO SCH (10:47)
[2021-06-23] MEDS: PEPCID TAB 40 MG PO SCH ×2 (10:47→21:13)
[2021-06-23] MEDS: ZINC SULFATE PO SCH ×2 (10:47→21:13)
[2021-06-23] MEDS: FLUVOXAMINE MALEATE PO SCH ×2 (10:47→21:11)
[2021-06-23] MEDS: VITAMIN D3 125 mcg (5,000 UNITS) PO SCH (10:48)
[2021-06-23] MEDS: VITAMIN A PO SCH (10:48)
[2021-06-23] MEDS: LOVENOX INJ 60 MG SYR SC SCH ×2 (10:49→21:12)
[2021-06-23] MEDS: PROTONIX INJ 40 MG VIAL IVP SCH ×2 (10:49→21:13)
[2021-06-23] MEDS: NS 1000 ML 1,000 ML IV SCH (12:12)
[2021-06-23] MEDS: HumuLIN R SUBCUT PRN ×3 (12:23→21:00)
[2021-06-23] MEDS: BUTT CREAM (COMPOUND) TOP PRN (13:24)
[2021-06-23] MEDS: MELATONIN PO SCH (21:12)
[2021-06-23] MEDS: SNACK - Diabetic Appropriate PO SCH (23:58)
[2021-06-24] MEDS: DIPRIVAN PREMIX 1 GRAM IV 1,000 MG/100 ML VIAL IV PRN ×6 (00:45→23:39)
[2021-06-24] MEDS: ASCORBIC ACID INJ MULTI-DOSE VIAL 1,500 MG in NS 50 ML IV 50 ML IV SCH ×3 (03:10→19:51)
[2021-06-24 04:18] LABS: ABG BASE EXCESS 15.8 mmol/L (-2.0-2.0)
[2021-06-24 04:19] LABS: ABG ALLEN TEST POS; ABG HCO3 43.7 mmol/L (22-26)
[2021-06-24] MEDS: SOLU-Medrol 125 MG VIAL IVP SCH ×5 (05:53→23:20)
[2021-06-24] MEDS: ZOSYN VIAL 3.375 GRAMS 3.375 G in NS 100 ML IV + SPIKE MINIBAG* 100 ML IV SCH (05:54)
[2021-06-24] MEDS: HumuLIN R SUBCUT PRN ×4 (05:54→20:34)
--- NOTE | 2021-06-24 06:03 | RAD ---
HISTORYPNEUMONIA, VENTILATOR DEPENDENTSTUDYCHEST, 1 [id number]/16/2021.TECHNIQUEAP view of the chestFINDINGSET tube in good position. NG tube courses below the visualized field of view. Cardiac and mediastinal contours are within normal limits. No significant change in bilateral airspace and interstitial opacities. No definite pleural effusion or pneumothorax.IMPRESSIONNo significant change.Electronically signed by: Robert Benavides (Jun 24, 2021 06:02:29)
[2021-06-24 06:16] LABS: BASOPHILS % (AUTO) 0.1 % (0.2-1.0); HEMATOCRIT 40.5 % (42.0-54.0); HEMOGLOBIN 13.5 g/dL (13.5-18.0); LYMPHOCYTES # (AUTO) 0.3 X10^3/uL (1.3-2.9); LYMPHOCYTES % (AUTO) 1.5 % (21.0-51.0); MEAN CORPUSCULAR HEMOGLOBIN 30.6 pg (27.0-34.0); MEAN CORPUSCULAR HGB CONC 33.3 g/dL (33.0-35.0); MEAN CORPUSCULAR VOLUME 91.9 fL (80.0-100.0); MEAN PLATELET VOLUME 8.7 fL (7.4-11.0); MONOCYTES # (AUTO) 1.1 x10^3/uL (0.3-0.8); MONOCYTES % (AUTO) 5.6 % (0.0-13.0); NEUTROPHILS # (AUTO) 18.2 x10^3/uL (2.2-4.8); NEUTROPHILS % (AUTO) 92.8 % (42.0-75.0); PLATELET COUNT 226 X10^3/uL (150.0-450.0); RED CELL DISTRIBUTION WIDTH 13.8 % (11.6-16.5); WHITE BLOOD COUNT 19.6 X10^3/uL (3.6-10.0)
[2021-06-24 06:34] LABS: ALANINE AMINOTRANSFERASE 47 Units/L (12-78); ALBUMIN 1.5 g/dL (3.4-5.0); ALKALINE PHOSPHATASE 75 Units/L (46-116); ASPARTATE AMINO TRANSFERASE 30 Units/L (15-37); BLOOD UREA NITROGEN 32 mg/dL (7-18); CALCIUM 7.8 mg/dL (8.5-10.1); CARBON DIOXIDE 38.9 mmol/L (21-32); CHLORIDE 111 mmol/L (98-107); COR CA(FOR HYPOALB) 9.8 mg/dL (8.5-10.1); COR NA(FOR HYPERGLY) 152 mmol/L (136-145); TOTAL PROTEIN 5.2 g/dL (6.4-8.2); eGFR NON BLACK RACES > 60 (>60)
[2021-06-24 06:41] LABS: SODIUM 150 mmol/L (136-145)
[2021-06-24 08:37] LABS: BAND NEUTROPHILS % 1 % (0-10); PLATELET MORPHOLOGY COMMENT NORMAL (NORMAL)
[2021-06-24] MEDS: PULMICORT NEB TX 0.5 MG NEB SCH ×2 (09:04→21:00)
[2021-06-24] MEDS: BROVANA IN SCH ×2 (09:04→21:00)
[2021-06-24] MEDS: PROTONIX INJ 40 MG VIAL IVP SCH ×2 (09:20→20:33)
[2021-06-24] MEDS: FLUVOXAMINE MALEATE PO SCH (09:44)
[2021-06-24] MEDS: CYTOTEC NG SCH ×4 (09:44→20:30)
[2021-06-24] MEDS: LIPITOR TAB 80 MG PO SCH (09:45)
[2021-06-24] MEDS: PEPCID TAB 40 MG PO SCH (09:45)
[2021-06-24] MEDS: VITAMIN D3 125 mcg (5,000 UNITS) PO SCH (09:45)
[2021-06-24] MEDS: VITAMIN A PO SCH (09:45)
[2021-06-24] MEDS: ZINC SULFATE PO SCH (09:45)
[2021-06-24] MEDS: LACRI-LUBE S.O.P. AFFEYE SCH ×2 (09:45→20:31)
[2021-06-24] MEDS: LR 1000 ML IV 1,000 ML IV SCH ×2 (10:45→19:51)
[2021-06-24] MEDS: DIFLUCAN 200 MG IV PREMIX* 200 MG/100 ML BAG IV SCH (10:45)
[2021-06-24] MEDS ORDERED: SOLU-Medrol 125 MG VIAL ONE (11:52)
[2021-06-24] MEDS: LOVENOX INJ 60 MG SYR SC SCH ×2 (11:56→20:31)
[2021-06-24] MEDS: NORCURON INJ 10 MG VIAL 50 MG in NS 50 ML IV 50 ML IV PRN (12:20)
[2021-06-24] MEDS: AVELOX IV 400 MG/250 ML BAG 400 MG/250 ML PIGGYBACK IV SCH (12:28)
[2021-06-24] MEDS: VERSED 100 MG in NS 100 ML IV 80 ML IV PRN ×2 (13:40→21:52)
[2021-06-24] MEDS: BUTT CREAM (COMPOUND) TOP PRN (17:44)
[2021-06-24] MEDS: FLUVOXAMINE MALEATE NG SCH (20:31)
[2021-06-24] MEDS: PEPCID TAB 40 MG NG SCH (20:32)
[2021-06-24] MEDS: MELATONIN NG SCH (20:32)
[2021-06-24] MEDS: ZINC SULFATE NG SCH (20:34)
[2021-06-25] MEDS ORDERED: LR 1000 ML IV 1,000 ML IV ONE (02:12)
[2021-06-25] MEDS: LR 1000 ML IV 1,000 ML IV SCH ×3 (02:58→20:14)
[2021-06-25] MEDS: ASCORBIC ACID INJ MULTI-DOSE VIAL 1,500 MG in NS 50 ML IV 50 ML IV SCH ×3 (02:58→20:16)
[2021-06-25] MEDS: DIPRIVAN PREMIX 1 GRAM IV 1,000 MG/100 ML VIAL IV PRN ×5 (03:24→19:15)
[2021-06-25 05:23] LABS: ABG BASE EXCESS 16.3 mmol/L (-2.0-2.0)
[2021-06-25 05:24] LABS: ABG ALLEN TEST POS; ABG HCO3 43.8 mmol/L (22-26)
[2021-06-25 05:26] LABS: BASOPHILS % (AUTO) 0.1 % (0.2-1.0); HEMOGLOBIN 12.8 g/dL (13.5-18.0); LYMPHOCYTES # (AUTO) 0.4 X10^3/uL (1.3-2.9); LYMPHOCYTES % (AUTO) 2.7 % (21.0-51.0); MEAN CORPUSCULAR HEMOGLOBIN 30.7 pg (27.0-34.0); MEAN CORPUSCULAR HGB CONC 33.7 g/dL (33.0-35.0); MEAN PLATELET VOLUME 9.2 fL (7.4-11.0); MONOCYTES # (AUTO) 0.8 x10^3/uL (0.3-0.8); MONOCYTES % (AUTO) 5.1 % (0.0-13.0); NEUTROPHILS # (AUTO) 13.9 x10^3/uL (2.2-4.8); NEUTROPHILS % (AUTO) 92.1 % (42.0-75.0); PLATELET COUNT 198 X10^3/uL (150.0-450.0); RED BLOOD COUNT 4.17 X10^6/uL (4.7-6.0); RED CELL DISTRIBUTION WIDTH 13.5 % (11.6-16.5); WHITE BLOOD COUNT 15.1 X10^3/uL (3.6-10.0)
[2021-06-25] MEDS: SOLU-Medrol 125 MG VIAL IVP SCH ×3 (05:43→17:57)
[2021-06-25] MEDS: HumuLIN R SUBCUT PRN (05:44)
[2021-06-25 05:50] LABS: ALANINE AMINOTRANSFERASE 52 Units/L (12-78); ALBUMIN 1.5 g/dL (3.4-5.0); ALKALINE PHOSPHATASE 78 Units/L (46-116); ASPARTATE AMINO TRANSFERASE 37 Units/L (15-37); BLOOD UREA NITROGEN 32 mg/dL (7-18); CALCIUM 7.5 mg/dL (8.5-10.1); CARBON DIOXIDE 39.5 mmol/L (21-32); CHLORIDE 112 mmol/L (98-107); COR CA(FOR HYPOALB) 9.5 mg/dL (8.5-10.1); COR NA(FOR HYPERGLY) 154 mmol/L (136-145); CREATININE 0.79 mg/dL (0.70-1.30); eGFR NON BLACK RACES > 60 (>60)
[2021-06-25] MEDS ORDERED: DIPRIVAN VIAL 20 ML ONE (05:51)
[2021-06-25 06:06] LABS: SODIUM 151 mmol/L (136-145)
[2021-06-25 06:14] LABS: PLATELET MORPHOLOGY COMMENT NORMAL (NORMAL)
--- NOTE | 2021-06-25 06:27 | RAD ---
HISTORYPNEUMONIA, VENTSTUDYCHEST, 1 [id number]/20/2021FINDINGSThe cardiomediastinal silhouette is stable. Endotracheal and enteric tubes unchanged. Similar bilateral airspace opacities. The bony thorax appears intact.IMPRESSIONNo significant change.Electronically signed by: JEREMIAS APPIAH (Jun 25, 2021 06:25:47)
[2021-06-25] MEDS: FLUVOXAMINE MALEATE NG SCH ×2 (09:00→20:18)
[2021-06-25] MEDS ORDERED: LR 1000 ML IV 2,000 ML IV ONE (09:09)
[2021-06-25] MEDS: VITAMIN D3 125 mcg (5,000 UNITS) NG SCH (09:15)
[2021-06-25] MEDS: CYTOTEC NG SCH ×4 (09:15→20:18)
[2021-06-25] MEDS: ZINC SULFATE NG SCH ×2 (09:15→20:30)
[2021-06-25] MEDS: LIPITOR TAB 80 MG NG SCH (09:15)
[2021-06-25] MEDS: VITAMIN A PO SCH (09:15)
[2021-06-25] MEDS: PULMICORT NEB TX 0.5 MG NEB SCH ×2 (09:55→20:45)
[2021-06-25] MEDS: BROVANA IN SCH ×2 (10:00→20:45)
[2021-06-25] MEDS: VERSED 100 MG in NS 100 ML IV 80 ML IV PRN ×2 (11:20→21:20)
[2021-06-25] MEDS: OFIRMEV IV 1000 MG VIAL 1,000 MG/100 ML VIAL IV PRN (11:36)
[2021-06-25] MEDS: LACRI-LUBE S.O.P. AFFEYE SCH ×2 (12:16→20:21)
[2021-06-25] MEDS: LOVENOX INJ 60 MG SYR SC SCH ×2 (12:18→20:22)
[2021-06-25] MEDS: PROTONIX INJ 40 MG VIAL IVP SCH ×2 (12:18→20:30)
[2021-06-25] MEDS: PEPCID TAB 40 MG NG SCH ×2 (12:18→20:29)
[2021-06-25] MEDS: AVELOX IV 400 MG/250 ML BAG 400 MG/250 ML PIGGYBACK IV SCH (12:38)
[2021-06-25] MEDS: DIFLUCAN 200 MG IV PREMIX* 200 MG/100 ML BAG IV SCH (12:38)
[2021-06-25] MEDS: MELATONIN NG SCH (20:23)
[2021-06-26] MEDS: NORCURON INJ 10 MG VIAL 50 MG in NS 50 ML IV 50 ML IV PRN (00:32)
[2021-06-26] MEDS: SOLU-Medrol 125 MG VIAL IVP SCH ×5 (00:34→23:51)
[2021-06-26] MEDS: DIPRIVAN PREMIX 1 GRAM IV 1,000 MG/100 ML VIAL IV PRN ×4 (01:30→18:36)
[2021-06-26] MEDS: LR 1000 ML IV 1,000 ML IV SCH ×3 (02:36→18:23)
[2021-06-26 04:06] LABS: ABG ALLEN TEST POS; ABG BASE EXCESS 14.3 mmol/L (-2.0-2.0); ABG HCO3 42.6 mmol/L (22-26)
[2021-06-26] MEDS: ASCORBIC ACID INJ MULTI-DOSE VIAL 1,500 MG in NS 50 ML IV 50 ML IV SCH ×3 (05:11→19:38)
[2021-06-26 06:05] LABS: BASOPHILS % (AUTO) 0.1 % (0.2-1.0); LYMPHOCYTES # (AUTO) 0.3 X10^3/uL (1.3-2.9); LYMPHOCYTES % (AUTO) 1.7 % (21.0-51.0); MEAN CORPUSCULAR HEMOGLOBIN 30.3 pg (27.0-34.0); MEAN CORPUSCULAR HGB CONC 33.3 g/dL (33.0-35.0); MEAN CORPUSCULAR VOLUME 91.2 fL (80.0-100.0); MEAN PLATELET VOLUME 9.6 fL (7.4-11.0); MONOCYTES # (AUTO) 0.7 x10^3/uL (0.3-0.8); MONOCYTES % (AUTO) 3.3 % (0.0-13.0); NEUTROPHILS # (AUTO) 19.2 x10^3/uL (2.2-4.8); NEUTROPHILS % (AUTO) 94.9 % (42.0-75.0); PLATELET COUNT 198 X10^3/uL (150.0-450.0); RED BLOOD COUNT 4.28 X10^6/uL (4.7-6.0); RED CELL DISTRIBUTION WIDTH 13.6 % (11.6-16.5); WHITE BLOOD COUNT 20.2 X10^3/uL (3.6-10.0)
[2021-06-26 06:24] LABS: ALANINE AMINOTRANSFERASE 53 Units/L (12-78); ALBUMIN 1.6 g/dL (3.4-5.0); ALKALINE PHOSPHATASE 84 Units/L (46-116); ASPARTATE AMINO TRANSFERASE 39 Units/L (15-37); BLOOD UREA NITROGEN 29 mg/dL (7-18); CALCIUM 7.6 mg/dL (8.5-10.1); CHLORIDE 109 mmol/L (98-107); COR CA(FOR HYPOALB) 9.5 mg/dL (8.5-10.1); COR NA(FOR HYPERGLY) 150 mmol/L (136-145); CREATININE 0.85 mg/dL (0.70-1.30); SODIUM 148 mmol/L (136-145); TOTAL PROTEIN 5.2 g/dL (6.4-8.2); eGFR NON BLACK RACES > 60 (>60)
[2021-06-26 06:46] LABS: CARBON DIOXIDE 40.2 mmol/L (21-32)
[2021-06-26 07:46] LABS: BAND NEUTROPHILS % 5 % (0-10)
[2021-06-26 07:47] LABS: PLATELET MORPHOLOGY COMMENT NORMAL (NORMAL)
[2021-06-26] MEDS: VERSED 100 MG in NS 100 ML IV 80 ML IV PRN ×3 (08:36→19:39)
[2021-06-26] MEDS: CYTOTEC NG SCH ×4 (10:02→21:39)
[2021-06-26] MEDS: FLUVOXAMINE MALEATE NG SCH ×2 (10:02→21:40)
[2021-06-26] MEDS: LOVENOX INJ 60 MG SYR SC SCH ×2 (10:03→21:40)
[2021-06-26] MEDS: LIPITOR TAB 80 MG NG SCH (10:03)
[2021-06-26] MEDS: PEPCID TAB 40 MG NG SCH ×2 (10:04→21:41)
[2021-06-26] MEDS: PULMICORT NEB TX 0.5 MG NEB SCH ×2 (10:04→21:32)
[2021-06-26] MEDS: BROVANA IN SCH ×2 (10:04→21:32)
[2021-06-26] MEDS: PROTONIX INJ 40 MG VIAL IVP SCH ×2 (10:04→21:41)
[2021-06-26] MEDS: VITAMIN A PO SCH (10:05)
[2021-06-26] MEDS: VITAMIN D3 125 mcg (5,000 UNITS) NG SCH (10:05)
[2021-06-26] MEDS: ZINC SULFATE NG SCH ×2 (10:05→21:39)
[2021-06-26] MEDS: LACRI-LUBE S.O.P. AFFEYE SCH ×2 (10:06→20:13)
[2021-06-26] MEDS: DIFLUCAN 200 MG IV PREMIX* 200 MG/100 ML BAG IV SCH (11:18)
[2021-06-26] MEDS ORDERED: LR 1000 ML IV 1,000 ML IV ONE (11:26)
[2021-06-26] MEDS ORDERED: TYGACIL 50 MG VIAL 100 MG in NS 100 ML IV 100 ML IV ONE (11:33)
--- NOTE | 2021-06-26 13:09 | RAD ---
HISTORYPneumonia COVID-19STUDYPortable AP [id number]/21/2021FINDINGSHeart size is similar, upper normal. Support lines are unchanged, ET tube in upper trachea at the level of T2-3. There is interval progression of bilateral confluent airspace disease. No pneumothorax is seen.IMPRESSIONInter crease in bilateral pneumonia.Electronically signed by: FRANCO NATION (Jun 26, 2021 13:07:07)
[2021-06-26] MEDS: AVELOX IV 400 MG/250 ML BAG 400 MG/250 ML PIGGYBACK IV SCH (14:00)
[2021-06-26] MEDS: MELATONIN NG SCH (21:40)
[2021-06-26] MEDS: HumuLIN R SUBCUT PRN (21:42)
[2021-06-26] MEDS: TYGACIL 50 MG VIAL 50 MG in NS 100 ML IV 100 ML IV SCH (21:58)
[2021-06-27] MEDS: DIPRIVAN PREMIX 1 GRAM IV 1,000 MG/100 ML VIAL IV PRN ×7 (00:14→22:46)
[2021-06-27] MEDS: NORCURON INJ 10 MG VIAL 50 MG in NS 50 ML IV 50 ML IV PRN ×3 (00:16→17:13)
[2021-06-27] MEDS: ASCORBIC ACID INJ MULTI-DOSE VIAL 1,500 MG in NS 50 ML IV 50 ML IV SCH ×3 (03:12→19:40)
[2021-06-27] MEDS: VERSED 100 MG in NS 100 ML IV 80 ML IV PRN ×2 (03:13→16:56)
[2021-06-27] MEDS: SOLU-Medrol 125 MG VIAL IVP SCH ×3 (05:25→18:02)
[2021-06-27 05:42] LABS: BASOPHILS % (AUTO) 0.1 % (0.2-1.0); HEMATOCRIT 34.3 % (42.0-54.0); HEMOGLOBIN 11.7 g/dL (13.5-18.0); LYMPHOCYTES # (AUTO) 0.8 X10^3/uL (1.3-2.9); LYMPHOCYTES % (AUTO) 4.8 % (21.0-51.0); MEAN CORPUSCULAR HEMOGLOBIN 30.9 pg (27.0-34.0); MEAN CORPUSCULAR HGB CONC 34.2 g/dL (33.0-35.0); MEAN CORPUSCULAR VOLUME 90.3 fL (80.0-100.0); MEAN PLATELET VOLUME 9.6 fL (7.4-11.0); MONOCYTES % (AUTO) 5.9 % (0.0-13.0); NEUTROPHILS # (AUTO) 14.5 x10^3/uL (2.2-4.8); NEUTROPHILS % (AUTO) 89.2 % (42.0-75.0); PLATELET COUNT 165 X10^3/uL (150.0-450.0); RED CELL DISTRIBUTION WIDTH 13.2 % (11.6-16.5); WHITE BLOOD COUNT 16.3 X10^3/uL (3.6-10.0)
[2021-06-27] MEDS: HumuLIN R SUBCUT PRN ×2 (05:46→11:31)
[2021-06-27 06:14] LABS: ALANINE AMINOTRANSFERASE 51 Units/L (12-78); ALBUMIN 1.4 g/dL (3.4-5.0); ALKALINE PHOSPHATASE 70 Units/L (46-116); ASPARTATE AMINO TRANSFERASE 29 Units/L (15-37); BLOOD UREA NITROGEN 31 mg/dL (7-18); CALCIUM 7.3 mg/dL (8.5-10.1); CARBON DIOXIDE 38.5 mmol/L (21-32); CHLORIDE 108 mmol/L (98-107); COR CA(FOR HYPOALB) 9.4 mg/dL (8.5-10.1); COR NA(FOR HYPERGLY) 148 mmol/L (136-145); CREATININE 0.69 mg/dL (0.70-1.30); SODIUM 146 mmol/L (136-145); TOTAL PROTEIN 4.5 g/dL (6.4-8.2); eGFR NON BLACK RACES > 60 (>60)
[2021-06-27 06:45] LABS: ABG BASE EXCESS 13.3 mmol/L (-2.0-2.0)
[2021-06-27 06:48] LABS: ABG ALLEN TEST POS; ABG HCO3 41.2 mmol/L (22-26)
--- NOTE | 2021-06-27 07:53 | RAD ---
HISTORYVENTILATOR DEPENDENCESTUDYCHEST, 1 [id number]/22/2021.TECHNIQUEAP view of the chestFINDINGSET tube in good position. NG tube courses below the visualized field of view. No significant change in diffuse bilateral airspace opacities. No pleural effusion or pneumothorax.IMPRESSIONNo significant change in diffuse bilateral airspace opacities from pneumonia.Electronically signed by: Robert Benavides (Jun 27, 2021 07:51:42)
[2021-06-27] MEDS: DIFLUCAN 200 MG IV PREMIX* 200 MG/100 ML BAG IV SCH (08:00)
[2021-06-27] MEDS: CYTOTEC NG SCH ×4 (09:13→20:44)
[2021-06-27] MEDS: LACRI-LUBE S.O.P. AFFEYE SCH ×2 (09:13→20:46)
[2021-06-27] MEDS: FLUVOXAMINE MALEATE NG SCH ×2 (09:13→20:46)
[2021-06-27] MEDS: LIPITOR TAB 80 MG NG SCH (09:13)
[2021-06-27] MEDS: LOVENOX INJ 60 MG SYR SC SCH ×2 (09:14→20:46)
[2021-06-27] MEDS: ZINC SULFATE NG SCH ×2 (09:16→20:45)
[2021-06-27] MEDS: PEPCID TAB 40 MG NG SCH ×2 (09:16→20:45)
[2021-06-27] MEDS: PROTONIX INJ 40 MG VIAL IVP SCH ×2 (09:17→20:47)
[2021-06-27] MEDS: VITAMIN A PO SCH (09:20)
[2021-06-27] MEDS: VITAMIN D3 125 mcg (5,000 UNITS) NG SCH (09:23)
[2021-06-27] MEDS: TYGACIL 50 MG VIAL 50 MG in NS 100 ML IV 100 ML IV SCH ×2 (09:24→20:45)
[2021-06-27] MEDS: PULMICORT NEB TX 0.5 MG NEB SCH ×2 (09:58→20:42)
[2021-06-27] MEDS: BROVANA IN SCH ×2 (09:58→20:42)
[2021-06-27] MEDS: LR 1000 ML IV 1,000 ML IV SCH ×3 (10:55→19:39)
[2021-06-27] MEDS: AVELOX IV 400 MG/250 ML BAG 400 MG/250 ML PIGGYBACK IV SCH (12:06)
[2021-06-27] MEDS ORDERED: VERSED IV PREMIX 100 MG/100 ML IV.SOLN IV ONE (19:16)
[2021-06-27] MEDS: MELATONIN NG SCH (20:47)
[2021-06-27] MEDS: OFIRMEV IV 1000 MG VIAL 1,000 MG/100 ML VIAL IV PRN (21:00)
[2021-06-28] MEDS: BUTT CREAM (COMPOUND) TOP PRN (02:02)
[2021-06-28] MEDS: DIPRIVAN PREMIX 1 GRAM IV 1,000 MG/100 ML VIAL IV PRN ×6 (02:02→21:30)
[2021-06-28] MEDS: ASCORBIC ACID INJ MULTI-DOSE VIAL 1,500 MG in NS 50 ML IV 50 ML IV SCH ×3 (02:49→22:26)
[2021-06-28] MEDS: NORCURON INJ 10 MG VIAL 50 MG in NS 50 ML IV 50 ML IV PRN ×4 (03:08→22:26)
[2021-06-28 04:57] LABS: BASOPHILS % (AUTO) 0.1 % (0.2-1.0); HEMATOCRIT 34.5 % (42.0-54.0); HEMOGLOBIN 11.8 g/dL (13.5-18.0); LYMPHOCYTES # (AUTO) 0.6 X10^3/uL (1.3-2.9); LYMPHOCYTES % (AUTO) 3.4 % (21.0-51.0); MEAN CORPUSCULAR HEMOGLOBIN 30.8 pg (27.0-34.0); MEAN CORPUSCULAR HGB CONC 34.1 g/dL (33.0-35.0); MEAN CORPUSCULAR VOLUME 90.4 fL (80.0-100.0); MEAN PLATELET VOLUME 9.6 fL (7.4-11.0); MONOCYTES # (AUTO) 0.8 x10^3/uL (0.3-0.8); MONOCYTES % (AUTO) 4.6 % (0.0-13.0); NEUTROPHILS # (AUTO) 16.2 x10^3/uL (2.2-4.8); NEUTROPHILS % (AUTO) 91.9 % (42.0-75.0); PLATELET COUNT 160 X10^3/uL (150.0-450.0); RED BLOOD COUNT 3.82 X10^6/uL (4.7-6.0); RED CELL DISTRIBUTION WIDTH 12.9 % (11.6-16.5); WHITE BLOOD COUNT 17.7 X10^3/uL (3.6-10.0)
[2021-06-28] MEDS: LR 1000 ML IV 1,000 ML IV SCH ×3 (05:02→18:20)
[2021-06-28] MEDS: SOLU-Medrol 125 MG VIAL IVP SCH ×5 (05:03→23:40)
[2021-06-28] MEDS: VERSED 100 MG in NS 100 ML IV 80 ML IV PRN ×3 (05:04→18:32)
[2021-06-28 05:11] LABS: ALANINE AMINOTRANSFERASE 49 Units/L (12-78); ALBUMIN 1.4 g/dL (3.4-5.0); ALKALINE PHOSPHATASE 66 Units/L (46-116); ASPARTATE AMINO TRANSFERASE 28 Units/L (15-37); BLOOD UREA NITROGEN 27 mg/dL (7-18); CALCIUM 7.3 mg/dL (8.5-10.1); CARBON DIOXIDE 39.8 mmol/L (21-32); CHLORIDE 108 mmol/L (98-107); COR CA(FOR HYPOALB) 9.4 mg/dL (8.5-10.1); COR NA(FOR HYPERGLY) 148 mmol/L (136-145); CREATININE 0.67 mg/dL (0.70-1.30); SODIUM 146 mmol/L (136-145); TOTAL PROTEIN 4.4 g/dL (6.4-8.2); eGFR NON BLACK RACES > 60 (>60)
[2021-06-28] MEDS: HumuLIN R SUBCUT PRN ×2 (05:31→11:47)
[2021-06-28 05:49] LABS: PLATELET MORPHOLOGY COMMENT NORMAL (NORMAL)
[2021-06-28 06:38] LABS: ABG BASE EXCESS 16.8 mmol/L (-2.0-2.0)
[2021-06-28 06:40] LABS: ABG ALLEN TEST POS; ABG HCO3 43.8 mmol/L (22-26)
[2021-06-28] MEDS: DIFLUCAN 200 MG IV PREMIX* 200 MG/100 ML BAG IV SCH (08:20)
[2021-06-28] MEDS: CYTOTEC NG SCH ×4 (08:20→21:27)
[2021-06-28] MEDS: LIPITOR TAB 80 MG NG SCH (08:21)
[2021-06-28] MEDS: FLUVOXAMINE MALEATE NG SCH ×2 (08:21→21:00)
[2021-06-28] MEDS: LOVENOX INJ 60 MG SYR SC SCH ×2 (08:22→21:29)
[2021-06-28] MEDS: LACRI-LUBE S.O.P. AFFEYE SCH ×2 (08:23→22:28)
[2021-06-28] MEDS: PROTONIX INJ 40 MG VIAL IVP SCH ×2 (08:23→21:29)
[2021-06-28] MEDS: PEPCID TAB 40 MG NG SCH ×2 (08:23→21:28)
[2021-06-28] MEDS: VITAMIN D3 125 mcg (5,000 UNITS) NG SCH (08:24)
[2021-06-28] MEDS: VITAMIN A PO SCH (08:24)
[2021-06-28] MEDS: ZINC SULFATE NG SCH ×2 (08:25→21:28)
[2021-06-28] MEDS: BROVANA IN SCH ×2 (08:50→20:10)
[2021-06-28] MEDS: PULMICORT NEB TX 0.5 MG NEB SCH ×2 (08:50→20:10)
[2021-06-28] MEDS: TYGACIL 50 MG VIAL 50 MG in NS 100 ML IV 100 ML IV SCH ×2 (09:00→21:27)
[2021-06-28] MEDS ORDERED: IVERMECTIN PO ONE (09:40)
[2021-06-28] MEDS ORDERED: LIPOSYN III 20% 100ML 100 ML IV NR (10:00)
[2021-06-28] MEDS: AVELOX IV 400 MG/250 ML BAG 400 MG/250 ML PIGGYBACK IV SCH (10:48)
[2021-06-28] MEDS: ALBUMIN HUMAN 25%- 100 ML 100 ML IV SCH ×2 (10:49→22:00)
[2021-06-28] MEDS ORDERED: VERSED IV PREMIX 100 MG/100 ML IV.SOLN IV ONE ×3 (11:56→23:28)
[2021-06-28] MEDS ORDERED: VORICONAZOLE 400 MG in NS 100 ML IV 100 ML IV SCH (21:00)
[2021-06-28] MEDS: MELATONIN NG SCH (21:29)
[2021-06-28] MEDS: LIPOSYN III 20% 100ML 100 ML IV SCH (21:30)
[2021-06-29] MEDS: DIPRIVAN PREMIX 1 GRAM IV 1,000 MG/100 ML VIAL IV PRN ×7 (01:05→23:03)
[2021-06-29] MEDS: ASCORBIC ACID INJ MULTI-DOSE VIAL 1,500 MG in NS 50 ML IV 50 ML IV SCH ×3 (02:48→21:00)
[2021-06-29] MEDS: LR 1000 ML IV 1,000 ML IV SCH ×3 (02:49→18:27)
[2021-06-29] MEDS: NORCURON INJ 10 MG VIAL 50 MG in NS 50 ML IV 50 ML IV PRN ×3 (04:27→18:33)
[2021-06-29 04:57] LABS: ABG BASE EXCESS 16.3 mmol/L (-2.0-2.0)
[2021-06-29 04:58] LABS: ABG ALLEN TEST POS; ABG HCO3 43.8 mmol/L (22-26)
[2021-06-29 05:16] LABS: BASOPHILS % (AUTO) 0.1 % (0.2-1.0); HEMATOCRIT 29.7 % (42.0-54.0); HEMOGLOBIN 10.3 g/dL (13.5-18.0); LYMPHOCYTES # (AUTO) 0.9 X10^3/uL (1.3-2.9); LYMPHOCYTES % (AUTO) 5.4 % (21.0-51.0); MEAN CORPUSCULAR HEMOGLOBIN 31.2 pg (27.0-34.0); MEAN CORPUSCULAR HGB CONC 34.7 g/dL (33.0-35.0); MEAN CORPUSCULAR VOLUME 90.1 fL (80.0-100.0); MEAN PLATELET VOLUME 9.8 fL (7.4-11.0); MONOCYTES # (AUTO) 1.3 x10^3/uL (0.3-0.8); MONOCYTES % (AUTO) 7.9 % (0.0-13.0); NEUTROPHILS # (AUTO) 14.7 x10^3/uL (2.2-4.8); NEUTROPHILS % (AUTO) 86.6 % (42.0-75.0); PLATELET COUNT 128 X10^3/uL (150.0-450.0); RED CELL DISTRIBUTION WIDTH 12.4 % (11.6-16.5); WHITE BLOOD COUNT 16.9 X10^3/uL (3.6-10.0)
[2021-06-29 05:28] LABS: ALANINE AMINOTRANSFERASE 34 Units/L (12-78); ALKALINE PHOSPHATASE 59 Units/L (46-116); ASPARTATE AMINO TRANSFERASE 16 Units/L (15-37); BLOOD UREA NITROGEN 24 mg/dL (7-18); CALCIUM 7.4 mg/dL (8.5-10.1); CARBON DIOXIDE 38.5 mmol/L (21-32); CHLORIDE 107 mmol/L (98-107); COR NA(FOR HYPERGLY) 147 mmol/L (136-145); CREATININE 0.63 mg/dL (0.70-1.30); SODIUM 145 mmol/L (136-145); TOTAL PROTEIN 4.4 g/dL (6.4-8.2); eGFR NON BLACK RACES > 60 (>60)
[2021-06-29] MEDS: SOLU-Medrol 125 MG VIAL IVP SCH ×4 (05:50→21:00)
[2021-06-29] MEDS: DIFLUCAN 200 MG IV PREMIX* 200 MG/100 ML BAG IV SCH (08:07)
[2021-06-29] MEDS: CYTOTEC NG SCH ×4 (08:08→21:00)
[2021-06-29] MEDS: FLUVOXAMINE MALEATE NG SCH ×2 (08:09→21:51)
[2021-06-29] MEDS: PEPCID TAB 40 MG NG SCH ×2 (08:09→21:00)
[2021-06-29] MEDS: LIPITOR TAB 80 MG NG SCH (08:09)
[2021-06-29] MEDS: VITAMIN D3 125 mcg (5,000 UNITS) NG SCH (08:10)
[2021-06-29] MEDS: ZINC SULFATE NG SCH ×2 (08:10→21:00)
[2021-06-29] MEDS: VITAMIN A PO SCH (08:10)
[2021-06-29] MEDS: PROTONIX INJ 40 MG VIAL IVP SCH ×2 (08:10→21:00)
[2021-06-29] MEDS: LOVENOX INJ 60 MG SYR SC SCH ×2 (08:11→21:00)
[2021-06-29] MEDS: LACRI-LUBE S.O.P. AFFEYE SCH ×2 (08:11→21:00)
[2021-06-29] MEDS: VERSED 100 MG in NS 100 ML IV 80 ML IV PRN ×3 (09:07→23:02)
[2021-06-29] MEDS: ALBUMIN HUMAN 25%- 100 ML 100 ML IV SCH (09:17)
[2021-06-29] MEDS: BROVANA IN SCH ×2 (09:45→21:00)
[2021-06-29] MEDS: PULMICORT NEB TX 0.5 MG NEB SCH ×2 (09:45→21:00)
[2021-06-29] MEDS: TYGACIL 50 MG VIAL 50 MG in NS 100 ML IV 100 ML IV SCH ×2 (11:12→21:30)
[2021-06-29] MEDS: AVELOX IV 400 MG/250 ML BAG 400 MG/250 ML PIGGYBACK IV SCH (11:59)
[2021-06-29] MEDS ORDERED: VERSED IV PREMIX 100 MG/100 ML IV.SOLN IV ONE ×2 (14:39→21:33)
[2021-06-29] MEDS: LIPOSYN III 20% 100ML 100 ML IV SCH (21:00)
[2021-06-29] MEDS: MELATONIN NG SCH (21:00)
[2021-06-29] MEDS: HumuLIN R SUBCUT PRN (23:01)
[2021-06-30] MEDS: DIPRIVAN PREMIX 1 GRAM IV 1,000 MG/100 ML VIAL IV PRN ×6 (01:53→20:06)
[2021-06-30] MEDS: BUTT CREAM (COMPOUND) TOP PRN (01:53)
[2021-06-30] MEDS: LR 1000 ML IV 1,000 ML IV SCH (03:02)
[2021-06-30] MEDS: SOLU-Medrol 125 MG VIAL IVP SCH ×4 (03:02→20:27)
[2021-06-30] MEDS: ASCORBIC ACID INJ MULTI-DOSE VIAL 1,500 MG in NS 50 ML IV 50 ML IV SCH ×3 (03:03→20:06)
[2021-06-30] MEDS ORDERED: VERSED IV PREMIX 100 MG/100 ML IV.SOLN IV ONE (03:17)
[2021-06-30] MEDS: NORCURON INJ 10 MG VIAL 50 MG in NS 50 ML IV 50 ML IV PRN ×2 (04:33→14:50)
[2021-06-30] MEDS: VERSED 100 MG in NS 100 ML IV 80 ML IV PRN ×2 (05:07→14:45)
[2021-06-30 05:19] LABS: ABG BASE EXCESS 15.3 mmol/L (-2.0-2.0)
[2021-06-30 05:25] LABS: ABG ALLEN TEST POS
[2021-06-30] MEDS: HumuLIN R SUBCUT PRN (05:38)
[2021-06-30 06:05] LABS: BASOPHILS % (AUTO) 0.3 % (0.2-1.0); HEMATOCRIT 28.7 % (42.0-54.0); HEMOGLOBIN 9.9 g/dL (13.5-18.0); LYMPHOCYTES # (AUTO) 0.5 X10^3/uL (1.3-2.9); LYMPHOCYTES % (AUTO) 3.3 % (21.0-51.0); MEAN CORPUSCULAR HEMOGLOBIN 31.3 pg (27.0-34.0); MEAN CORPUSCULAR HGB CONC 34.4 g/dL (33.0-35.0); MEAN CORPUSCULAR VOLUME 90.8 fL (80.0-100.0); MEAN PLATELET VOLUME 10.6 fL (7.4-11.0); MONOCYTES # (AUTO) 0.8 x10^3/uL (0.3-0.8); MONOCYTES % (AUTO) 5.4 % (0.0-13.0); NEUTROPHILS # (AUTO) 12.6 x10^3/uL (2.2-4.8); PLATELET COUNT 113 X10^3/uL (150.0-450.0); RED BLOOD COUNT 3.16 X10^6/uL (4.7-6.0); RED CELL DISTRIBUTION WIDTH 12.6 % (11.6-16.5); WHITE BLOOD COUNT 13.9 X10^3/uL (3.6-10.0)
[2021-06-30 06:38] LABS: ALANINE AMINOTRANSFERASE 44 Units/L (12-78); ALBUMIN 2.2 g/dL (3.4-5.0); ALKALINE PHOSPHATASE 67 Units/L (46-116); ASPARTATE AMINO TRANSFERASE 30 Units/L (15-37); BLOOD UREA NITROGEN 22 mg/dL (7-18); CALCIUM 7.4 mg/dL (8.5-10.1); CARBON DIOXIDE 38.7 mmol/L (21-32); CHLORIDE 109 mmol/L (98-107); COR CA(FOR HYPOALB) 8.8 mg/dL (8.5-10.1); COR NA(FOR HYPERGLY) 148 mmol/L (136-145); CREATININE 0.52 mg/dL (0.70-1.30); SODIUM 146 mmol/L (136-145); TOTAL PROTEIN 4.4 g/dL (6.4-8.2); eGFR NON BLACK RACES > 60 (>60)
--- NOTE | 2021-06-30 07:22 | RAD ---
HISTORYCOVID PNEUMONIASTUDYCHEST, 1 [id number]/23/2021.TECHNIQUEAP view of the chestFINDINGSET tube in good position. NG tube in good position. Cardiac and mediastinal contours are within normal limits. No significant change in bilateral hazy and interstitial pulmonary opacities. No definite pleural effusion or pneumothorax. There is subcutaneous emphysema in the bilateral neck base.IMPRESSIONNo significant change in COVID pneumonia. Subcutaneous emphysema in the bilateral supraclavicular fossas.Electronically signed by: Robert Benavides (Jun 30, 2021 07:19:56)
[2021-06-30 07:51] LABS: BAND NEUTROPHILS % 3 % (0-10); PLATELET MORPHOLOGY COMMENT NORMAL (NORMAL)
[2021-06-30] MEDS: PROTONIX INJ 40 MG VIAL IVP SCH ×2 (08:08→20:30)
[2021-06-30] MEDS: DIFLUCAN 200 MG IV PREMIX* 200 MG/100 ML BAG IV SCH (08:09)
[2021-06-30] MEDS: VITAMIN D3 125 mcg (5,000 UNITS) NG SCH (09:08)
[2021-06-30] MEDS: ZINC SULFATE NG SCH ×2 (09:08→20:38)
[2021-06-30] MEDS: CYTOTEC NG SCH ×4 (09:08→20:27)
[2021-06-30] MEDS: VITAMIN A PO SCH (09:09)
[2021-06-30] MEDS: LOVENOX INJ 60 MG SYR SC SCH (09:09)
[2021-06-30] MEDS: ALBUMIN HUMAN 25%- 100 ML 100 ML IV SCH (09:09)
[2021-06-30] MEDS: LACRI-LUBE S.O.P. AFFEYE SCH ×2 (09:10→20:29)
[2021-06-30] MEDS: FLUVOXAMINE MALEATE NG SCH ×2 (09:10→20:28)
[2021-06-30] MEDS: PEPCID TAB 40 MG NG SCH ×2 (09:10→20:29)
[2021-06-30] MEDS: LIPITOR TAB 80 MG NG SCH (09:10)
[2021-06-30] MEDS: TYGACIL 50 MG VIAL 50 MG in NS 100 ML IV 100 ML IV SCH ×2 (09:35→20:37)
[2021-06-30] MEDS: BROVANA IN SCH ×2 (09:39→20:40)
[2021-06-30] MEDS: PULMICORT NEB TX 0.5 MG NEB SCH ×2 (09:39→20:40)
[2021-06-30] MEDS ORDERED: NS 1/2 1000 ML IV 1,000 ML IV ONE ×2 (10:53→18:39)
[2021-06-30] MEDS: NS 1/2 1000 ML IV 1,000 ML IV SCH ×2 (11:03→23:07)
[2021-06-30] MEDS: AVELOX IV 400 MG/250 ML BAG 400 MG/250 ML PIGGYBACK IV SCH (11:03)
[2021-06-30] MEDS ORDERED: LR 1000 ML IV 500 ML IV ONE (14:00)
[2021-06-30] MEDS: ELIQUIS PO SCH (20:27)
[2021-06-30] MEDS: MELATONIN NG SCH (20:28)
[2021-06-30] MEDS: LIPOSYN III 20% 100ML 100 ML IV SCH (20:34)
[2021-07-01] MEDS: DIPRIVAN PREMIX 1 GRAM IV 1,000 MG/100 ML VIAL IV PRN ×6 (01:43→21:53)
[2021-07-01] MEDS: VERSED 100 MG in NS 100 ML IV 80 ML IV PRN ×2 (01:46→15:00)
[2021-07-01] MEDS: SOLU-Medrol 125 MG VIAL IVP SCH ×4 (02:59→20:18)
[2021-07-01] MEDS: ASCORBIC ACID INJ MULTI-DOSE VIAL 1,500 MG in NS 50 ML IV 50 ML IV SCH ×3 (03:02→20:17)
[2021-07-01] MEDS: BUTT CREAM (COMPOUND) TOP PRN (03:21)
[2021-07-01 04:21] LABS: ABG BASE EXCESS 16.9 mmol/L (-2.0-2.0)
[2021-07-01 04:23] LABS: ABG ALLEN TEST POS
[2021-07-01] MEDS ORDERED: LR 1000 ML IV 500 ML IV ONE ×2 (05:28→13:21)
[2021-07-01] MEDS ORDERED: LR 1000 ML IV 1,000 ML IV ONE (05:29)
[2021-07-01 05:32] LABS: BASOPHILS % (AUTO) 0.2 % (0.2-1.0); HEMATOCRIT 35.5 % (42.0-54.0); LYMPHOCYTES # (AUTO) 0.5 X10^3/uL (1.3-2.9); LYMPHOCYTES % (AUTO) 2.3 % (21.0-51.0); MEAN CORPUSCULAR HEMOGLOBIN 30.8 pg (27.0-34.0); MEAN CORPUSCULAR HGB CONC 34.3 g/dL (33.0-35.0); MEAN CORPUSCULAR VOLUME 89.8 fL (80.0-100.0); MEAN PLATELET VOLUME 10.7 fL (7.4-11.0); MONOCYTES # (AUTO) 0.9 x10^3/uL (0.3-0.8); MONOCYTES % (AUTO) 3.9 % (0.0-13.0); NEUTROPHILS # (AUTO) 21.7 x10^3/uL (2.2-4.8); NEUTROPHILS % (AUTO) 93.6 % (42.0-75.0); PLATELET COUNT 160 X10^3/uL (150.0-450.0); RED BLOOD COUNT 3.95 X10^6/uL (4.7-6.0); RED CELL DISTRIBUTION WIDTH 12.8 % (11.6-16.5)
[2021-07-01 05:57] LABS: ALANINE AMINOTRANSFERASE 67 Units/L (12-78); ALBUMIN 2.5 g/dL (3.4-5.0); ALKALINE PHOSPHATASE 77 Units/L (46-116); ASPARTATE AMINO TRANSFERASE 43 Units/L (15-37); BLOOD UREA NITROGEN 20 mg/dL (7-18); CALCIUM 7.6 mg/dL (8.5-10.1); CARBON DIOXIDE 39.3 mmol/L (21-32); CHLORIDE 105 mmol/L (98-107); COR CA(FOR HYPOALB) 8.8 mg/dL (8.5-10.1); COR NA(FOR HYPERGLY) 146 mmol/L (136-145); CREATININE 0.47 mg/dL (0.70-1.30); SODIUM 144 mmol/L (136-145); TOTAL PROTEIN 5.1 g/dL (6.4-8.2); eGFR NON BLACK RACES > 60 (>60)
[2021-07-01 06:34] LABS: BAND NEUTROPHILS % 7 % (0-10); HEMOGLOBIN 12.2 g/dL (13.5-18.0); PLATELET MORPHOLOGY COMMENT NORMAL (NORMAL); WHITE BLOOD COUNT 23.2 X10^3/uL (3.6-10.0)
[2021-07-01] MEDS: ZINC SULFATE NG SCH ×2 (08:36→20:23)
[2021-07-01] MEDS: CYTOTEC NG SCH ×4 (08:36→20:19)
[2021-07-01] MEDS: VITAMIN D3 125 mcg (5,000 UNITS) NG SCH (08:37)
[2021-07-01] MEDS: PROTONIX INJ 40 MG VIAL IVP SCH ×2 (08:37→20:22)
[2021-07-01] MEDS: ALBUMIN HUMAN 25%- 100 ML 100 ML IV SCH (08:37)
[2021-07-01] MEDS: LACRI-LUBE S.O.P. AFFEYE SCH ×2 (08:38→20:20)
[2021-07-01] MEDS: FLUVOXAMINE MALEATE NG SCH ×2 (08:38→20:20)
[2021-07-01] MEDS: ELIQUIS PO SCH ×2 (08:38→20:19)
[2021-07-01] MEDS: DIFLUCAN 200 MG IV PREMIX* 200 MG/100 ML BAG IV SCH (08:38)
[2021-07-01] MEDS: TYGACIL 50 MG VIAL 50 MG in NS 100 ML IV 100 ML IV SCH ×2 (08:39→21:12)
[2021-07-01] MEDS: LIPITOR TAB 80 MG NG SCH (08:39)
[2021-07-01] MEDS: PEPCID TAB 40 MG NG SCH ×2 (08:39→20:21)
[2021-07-01] MEDS: VITAMIN A PO SCH (08:39)
[2021-07-01] MEDS: BROVANA IN SCH ×2 (09:38→20:55)
[2021-07-01] MEDS: PULMICORT NEB TX 0.5 MG NEB SCH ×2 (09:38→20:55)
[2021-07-01] MEDS: ZOSYN VIAL 3.375 GRAMS 3.375 G in NS 100 ML IV + SPIKE MINIBAG* 100 ML IV SCH ×4 (10:57→20:23)
--- NOTE | 2021-07-01 11:16 | RAD ---
HISTORYVENTILATOR DEPENDENCE PSH: ORTHOSTUDYCHEST, 1 [id number]/26/2021FINDINGSThe endotracheal tube and gastric tube are similar to the prior. Cardiac silhouette is unremarkable. Bilateral interstitial and airspace opacities persist, mildly improved on the right and worsened on the left. No significant pleural effusion or pneumothorax identified.IMPRESSIONPersistent bilateral lung infiltrates, improved on the right and worsened on the left.Electronically signed by: CHEKO BOYD (Jul 01, 2021 11:14:00)
[2021-07-01] MEDS: AVELOX IV 400 MG/250 ML BAG 400 MG/250 ML PIGGYBACK IV SCH (11:30)
[2021-07-01] MEDS ORDERED: NS 1/2 1000 ML IV 1,000 ML IV ONE (15:00)
[2021-07-01] MEDS: NORCURON INJ 10 MG VIAL 50 MG in NS 50 ML IV 50 ML IV PRN (15:19)
[2021-07-01] MEDS: NS 1/2 1000 ML IV 1,000 ML IV SCH (15:22)
[2021-07-01] MEDS ORDERED: VASOTEC INJ 2.5 MG VIAL IVP ONE (17:27)
[2021-07-01] MEDS: HumuLIN R SUBCUT PRN ×2 (17:40→20:30)
[2021-07-01] MEDS: LIPOSYN III 20% 100ML 100 ML IV SCH (20:20)
[2021-07-01] MEDS: MELATONIN NG SCH (20:20)
[2021-07-01 23:41] LABS: ABG HCO3 43.8 mmol/L (22-26)
[2021-07-02] MEDS: NORCURON INJ 10 MG VIAL 50 MG in NS 50 ML IV 50 ML IV PRN ×3 (00:14→09:47)
[2021-07-02] MEDS: BUTT CREAM (COMPOUND) TOP PRN (00:16)
[2021-07-02] MEDS: VERSED 100 MG in NS 100 ML IV 80 ML IV PRN ×2 (01:00→15:00)
[2021-07-02] MEDS: DIPRIVAN PREMIX 1 GRAM IV 1,000 MG/100 ML VIAL IV PRN ×6 (02:06→22:12)
[2021-07-02] MEDS: SOLU-Medrol 125 MG VIAL IVP SCH ×4 (02:30→23:32)
[2021-07-02] MEDS: ASCORBIC ACID INJ MULTI-DOSE VIAL 1,500 MG in NS 50 ML IV 50 ML IV SCH ×3 (04:06→20:54)
[2021-07-02] MEDS ORDERED: NS 1/2 1000 ML IV 1,000 ML IV ONE ×2 (05:04→21:58)
[2021-07-02] MEDS: NS 1/2 1000 ML IV 1,000 ML IV SCH ×2 (05:11→15:01)
[2021-07-02 05:38] LABS: ABG BASE EXCESS 19.6 mmol/L (-2.0-2.0)
[2021-07-02 05:40] LABS: ABG HCO3 47.8 mmol/L (22-26)
[2021-07-02 06:11] LABS: BASOPHILS % (AUTO) 0.1 % (0.2-1.0); HEMOGLOBIN 9.8 g/dL (13.5-18.0); LYMPHOCYTES # (AUTO) 0.2 X10^3/uL (1.3-2.9); LYMPHOCYTES % (AUTO) 1.4 % (21.0-51.0); MEAN CORPUSCULAR HEMOGLOBIN 31.3 pg (27.0-34.0); MEAN CORPUSCULAR HGB CONC 34.9 g/dL (33.0-35.0); MEAN CORPUSCULAR VOLUME 89.6 fL (80.0-100.0); MEAN PLATELET VOLUME 9.5 fL (7.4-11.0); MONOCYTES # (AUTO) 0.7 x10^3/uL (0.3-0.8); MONOCYTES % (AUTO) 3.8 % (0.0-13.0); NEUTROPHILS # (AUTO) 16.8 x10^3/uL (2.2-4.8); NEUTROPHILS % (AUTO) 94.7 % (42.0-75.0); PLATELET COUNT 145 X10^3/uL (150.0-450.0); RED BLOOD COUNT 3.12 X10^6/uL (4.7-6.0); RED CELL DISTRIBUTION WIDTH 12.8 % (11.6-16.5); WHITE BLOOD COUNT 17.8 X10^3/uL (3.6-10.0)
[2021-07-02 06:26] LABS: ALANINE AMINOTRANSFERASE 62 Units/L (12-78); ALBUMIN 2.2 g/dL (3.4-5.0); ALKALINE PHOSPHATASE 61 Units/L (46-116); ASPARTATE AMINO TRANSFERASE 31 Units/L (15-37); BLOOD UREA NITROGEN 19 mg/dL (7-18); CALCIUM 7.3 mg/dL (8.5-10.1); CHLORIDE 106 mmol/L (98-107); COR CA(FOR HYPOALB) 8.7 mg/dL (8.5-10.1); COR NA(FOR HYPERGLY) 149 mmol/L (136-145); CREATININE 0.55 mg/dL (0.70-1.30); SODIUM 147 mmol/L (136-145); TOTAL PROTEIN 4.2 g/dL (6.4-8.2); eGFR NON BLACK RACES > 60 (>60)
[2021-07-02 06:47] LABS: CARBON DIOXIDE 42.3 mmol/L (21-32)
[2021-07-02] MEDS: HumuLIN R SUBCUT PRN (07:13)
[2021-07-02 08:08] LABS: BAND NEUTROPHILS % 3 % (0-10); METAMYELOCYTES % 1; PLATELET MORPHOLOGY COMMENT NORMAL (NORMAL)
[2021-07-02] MEDS: PULMICORT NEB TX 0.5 MG NEB SCH ×2 (09:07→21:28)
[2021-07-02] MEDS: BROVANA IN SCH ×2 (09:07→21:28)
[2021-07-02] MEDS: TYGACIL 50 MG VIAL 50 MG in NS 100 ML IV 100 ML IV SCH ×2 (09:47→21:09)
[2021-07-02] MEDS: ALBUMIN HUMAN 25%- 100 ML 100 ML IV SCH (09:48)
[2021-07-02] MEDS: ZOSYN VIAL 3.375 GRAMS 3.375 G in NS 100 ML IV + SPIKE MINIBAG* 100 ML IV SCH ×4 (09:49→21:05)
[2021-07-02] MEDS: DIFLUCAN 200 MG IV PREMIX* 200 MG/100 ML BAG IV SCH (09:50)
[2021-07-02] MEDS: PROTONIX INJ 40 MG VIAL IVP SCH ×2 (09:50→21:05)
[2021-07-02] MEDS: CYTOTEC NG SCH ×4 (09:50→21:00)
[2021-07-02] MEDS: FLUVOXAMINE MALEATE NG SCH ×2 (09:51→21:01)
[2021-07-02] MEDS: ELIQUIS PO SCH ×2 (09:51→21:00)
[2021-07-02] MEDS: LACRI-LUBE S.O.P. AFFEYE SCH ×2 (09:51→21:02)
[2021-07-02] MEDS: ZINC SULFATE NG SCH ×2 (09:51→21:05)
[2021-07-02] MEDS: VITAMIN A PO SCH (09:52)
[2021-07-02] MEDS: PEPCID TAB 40 MG NG SCH ×2 (09:52→21:03)
[2021-07-02] MEDS: LIPITOR TAB 80 MG NG SCH (09:52)
[2021-07-02] MEDS: VITAMIN D3 125 mcg (5,000 UNITS) NG SCH (09:52)
--- NOTE | 2021-07-02 12:58 | RAD ---
HISTORYOG TUBE PLACEMENT, COVID PNEUMONIA, HYPOXIA Relevant Clinical InformationSTUDYKUBCOMPARISONAbdominal film June 19, 2021.FINDINGSEvaluation of the abdomen demonstrates a relatively airless abdomen. There is a suggestion of fluid filled distended small bowel loops oriented horizontally in the mid and lower abdomen. On OG tube is been placed tip in good position in the body of the stomach. A right-sided femoral catheters in place. Arechiga catheter is in place. No pathological soft tissue mass or calcification can be observed. The bony structures are grossly intact.IMPRESSIONOG tube in good position. Right femoral catheter in place. Arechiga catheter in place.Abdomen is relatively airless but there is suggestion of mildly distended fluid filled small bowel loops.Electronically signed by: TONI MCDOWELL (Jul 02, 2021 12:56:02)
[2021-07-02] MEDS: AVELOX IV 400 MG/250 ML BAG 400 MG/250 ML PIGGYBACK IV SCH (13:35)
--- NOTE | 2021-07-02 14:01 | RAD ---
HISTORYcovid, pneumonia, hypoxia HX: NONE.br ORTHOSTUDYCHEST, 1 VIEWCOMPARISONAugust 2020FINDINGSThe trachea is midline. The cardiac silhouette is stable as are NG and ET tubes. The lungs demonstrate slight worsening airspace opacities throughout both lungs compared to prior Can. The bony thorax is unremarkable.IMPRESSIONSlight worsening diffuse airspace disease as above.Electronically signed by: CAROLINA CRISOSTOMO (Jul 02, 2021 13:59:43)
[2021-07-02 18:33] LABS: HEMATOCRIT 31.6 % (42.0-54.0)
[2021-07-02] MEDS: MELATONIN NG SCH (21:02)
[2021-07-02] MEDS: LIPOSYN III 20% 100ML 100 ML IV SCH (21:02)
[2021-07-03] MEDS: VERSED 100 MG in NS 100 ML IV 80 ML IV PRN ×3 (01:00→22:40)
[2021-07-03] MEDS: DIPRIVAN PREMIX 1 GRAM IV 1,000 MG/100 ML VIAL IV PRN ×5 (03:13→22:40)
[2021-07-03] MEDS: SOLU-Medrol 125 MG VIAL IVP SCH ×4 (03:31→21:00)
[2021-07-03] MEDS: ASCORBIC ACID INJ MULTI-DOSE VIAL 1,500 MG in NS 50 ML IV 50 ML IV SCH ×3 (03:31→21:00)
[2021-07-03] MEDS: NS 1/2 1000 ML IV 1,000 ML IV SCH ×3 (04:10→16:53)
[2021-07-03 05:29] LABS: ABG BASE EXCESS 16.8 mmol/L (-2.0-2.0)
[2021-07-03 05:30] LABS: ABG ALLEN TEST POS; ABG HCO3 45.6 mmol/L (22-26)
[2021-07-03 05:52] LABS: BASOPHILS % (AUTO) 0.1 % (0.2-1.0); HEMATOCRIT 32.5 % (42.0-54.0); HEMOGLOBIN 11.5 g/dL (13.5-18.0); LYMPHOCYTES # (AUTO) 0.2 X10^3/uL (1.3-2.9); MEAN CORPUSCULAR HEMOGLOBIN 31.4 pg (27.0-34.0); MEAN CORPUSCULAR HGB CONC 35.2 g/dL (33.0-35.0); MEAN CORPUSCULAR VOLUME 89.1 fL (80.0-100.0); MEAN PLATELET VOLUME 9.6 fL (7.4-11.0); MONOCYTES # (AUTO) 0.5 x10^3/uL (0.3-0.8); MONOCYTES % (AUTO) 1.9 % (0.0-13.0); NEUTROPHILS # (AUTO) 23.6 x10^3/uL (2.2-4.8); PLATELET COUNT 172 X10^3/uL (150.0-450.0); RED BLOOD COUNT 3.65 X10^6/uL (4.7-6.0); RED CELL DISTRIBUTION WIDTH 12.9 % (11.6-16.5); WHITE BLOOD COUNT 24.4 X10^3/uL (3.6-10.0)
[2021-07-03 06:00] LABS: BLOOD UREA NITROGEN 18 mg/dL (7-18); CHLORIDE 104 mmol/L (98-107); CREATININE 0.47 mg/dL (0.70-1.30); SODIUM 147 mmol/L (136-145); eGFR NON BLACK RACES > 60 (>60)
[2021-07-03 06:01] LABS: ALANINE AMINOTRANSFERASE 69 Units/L (12-78); ALBUMIN 2.4 g/dL (3.4-5.0); ALKALINE PHOSPHATASE 70 Units/L (46-116); ASPARTATE AMINO TRANSFERASE 39 Units/L (15-37); CALCIUM 7.1 mg/dL (8.5-10.1); COR CA(FOR HYPOALB) 8.4 mg/dL (8.5-10.1); COR NA(FOR HYPERGLY) 149 mmol/L (136-145); TOTAL PROTEIN 4.8 g/dL (6.4-8.2)
[2021-07-03 06:33] LABS: CARBON DIOXIDE 40.7 mmol/L (21-32)
[2021-07-03] MEDS: NORCURON INJ 10 MG VIAL 50 MG in NS 50 ML IV 50 ML IV PRN ×3 (06:47→22:41)
[2021-07-03] MEDS: PULMICORT NEB TX 0.5 MG NEB SCH ×2 (08:42→20:30)
[2021-07-03] MEDS: BROVANA IN SCH ×2 (08:42→20:30)
[2021-07-03 09:05] LABS: BAND NEUTROPHILS % 4 % (0-10); METAMYELOCYTES % 1; PLATELET MORPHOLOGY COMMENT NORMAL (NORMAL); SMUDGE CELLS FEW
[2021-07-03] MEDS: ALBUMIN HUMAN 25%- 100 ML 100 ML IV SCH (09:14)
[2021-07-03] MEDS: AVODART PO SCH (09:14)
[2021-07-03] MEDS: ELIQUIS PO SCH ×2 (09:15→21:00)
[2021-07-03] MEDS: CYTOTEC NG SCH ×4 (09:15→21:00)
[2021-07-03] MEDS: DIFLUCAN 200 MG IV PREMIX* 200 MG/100 ML BAG IV SCH (09:15)
[2021-07-03] MEDS: PEPCID TAB 40 MG NG SCH ×2 (09:16→21:00)
[2021-07-03] MEDS: FLUVOXAMINE MALEATE NG SCH ×2 (09:16→21:00)
[2021-07-03] MEDS: LIPITOR TAB 80 MG NG SCH (09:16)
[2021-07-03] MEDS: LACRI-LUBE S.O.P. AFFEYE SCH ×2 (09:16→22:51)
[2021-07-03] MEDS: ZINC SULFATE NG SCH ×2 (09:17→21:00)
[2021-07-03] MEDS: ZOSYN VIAL 3.375 GRAMS 3.375 G in NS 100 ML IV + SPIKE MINIBAG* 100 ML IV SCH ×4 (09:17→22:48)
[2021-07-03] MEDS: PROTONIX INJ 40 MG VIAL IVP SCH ×2 (09:17→21:00)
[2021-07-03] MEDS: VITAMIN A PO SCH (09:17)
[2021-07-03] MEDS: VITAMIN D3 125 mcg (5,000 UNITS) NG SCH (09:17)
[2021-07-03] MEDS: AVELOX IV 400 MG/250 ML BAG 400 MG/250 ML PIGGYBACK IV SCH (11:37)
[2021-07-03] MEDS: TYGACIL 50 MG VIAL 50 MG in NS 100 ML IV 100 ML IV SCH ×2 (11:37→21:00)
[2021-07-03] MEDS ORDERED: VORICONAZOLE 400 MG in NS 100 ML IV 100 ML IV ONE (12:30)
[2021-07-03 16:18] LABS: ABG BASE EXCESS 16.6 mmol/L (-2.0-2.0)
[2021-07-03 16:20] LABS: ABG ALLEN TEST POS; ABG HCO3 45.7 mmol/L (22-26)
[2021-07-03] MEDS: MELATONIN NG SCH (21:00)
[2021-07-03] MEDS ORDERED: NS 1/2 1000 ML IV 1,000 ML IV ONE (22:33)
[2021-07-03] MEDS: LIPOSYN III 20% 100ML 100 ML IV SCH (23:00)
[2021-07-04] MEDS: SOLU-Medrol 125 MG VIAL IVP SCH ×3 (02:08→23:05)
[2021-07-04] MEDS: DIPRIVAN PREMIX 1 GRAM IV 1,000 MG/100 ML VIAL IV PRN ×6 (02:33→23:30)
[2021-07-04] MEDS: ASCORBIC ACID INJ MULTI-DOSE VIAL 1,500 MG in NS 50 ML IV 50 ML IV SCH ×3 (04:13→20:36)
--- NOTE | 2021-07-04 04:13 | RAD ---
PROCEDURE: Chest X-ray 1 View .HISTORY: COVID, PNEUMONIA, HPOXIA .TECHNIQUE: AP view .COMPARISON: 07/02/2021.TECHNICAL QUALITY: Satisfactory .FINDINGS:Endotracheal and NG tube in good position.Normal size heart.Mediastinum and hilar regions show no masses or lymphadenopathy .Normal central vascularity .Minimal patchy pneumonia both lung alcantar improved since previous study. No pleural fluid or pneumothorax.No acute bony abnormality .IMPRESSION:Improving pneumonia bilaterally.Electronically signed by: Chet Sheets (Jul 04, 2021 04:11:36)
[2021-07-04 05:04] LABS: ABG BASE EXCESS 18.5 mmol/L (-2.0-2.0)
[2021-07-04 05:05] LABS: ABG ALLEN TEST POS; ABG HCO3 46.9 mmol/L (22-26)
[2021-07-04] MEDS: NS 1/2 1000 ML IV 1,000 ML IV SCH ×2 (07:29→17:35)
--- NOTE | 2021-07-04 08:18 | RAD ---
HISTORYVENTILATOR DEPENDENCESTUDYCHEST x-ray, 1 VIEWCOMPARISONX-ray 07/03/2021FINDINGSEndotracheal tube terminates 6.2 cm above the dave. Enteric tube tip and side hole are in the region of the fundus of the stomach. The heart is likely normal in size. Diffuse bilateral lung infiltrates are similar to prior study. No pneumothorax or pleural effusion is seen.IMPRESSIONAppearance of the chest is unchanged.Electronically signed by: Alessandro James (Jul 04, 2021 08:16:28)
[2021-07-04] MEDS: PULMICORT NEB TX 0.5 MG NEB SCH ×2 (08:30→21:00)
[2021-07-04] MEDS: BROVANA IN SCH ×2 (08:30→21:00)
[2021-07-04 08:36] LABS: BASOPHILS % (AUTO) 0.1 % (0.2-1.0); HEMATOCRIT 27.3 % (42.0-54.0); HEMOGLOBIN 9.4 g/dL (13.5-18.0); LYMPHOCYTES # (AUTO) 0.4 X10^3/uL (1.3-2.9); LYMPHOCYTES % (AUTO) 2.1 % (21.0-51.0); MEAN CORPUSCULAR HEMOGLOBIN 30.6 pg (27.0-34.0); MEAN CORPUSCULAR HGB CONC 34.4 g/dL (33.0-35.0); MEAN PLATELET VOLUME 9.2 fL (7.4-11.0); MONOCYTES # (AUTO) 0.8 x10^3/uL (0.3-0.8); MONOCYTES % (AUTO) 4.1 % (0.0-13.0); NEUTROPHILS # (AUTO) 17.5 x10^3/uL (2.2-4.8); NEUTROPHILS % (AUTO) 93.7 % (42.0-75.0); PLATELET COUNT 120 X10^3/uL (150.0-450.0); RED BLOOD COUNT 3.07 X10^6/uL (4.7-6.0); RED CELL DISTRIBUTION WIDTH 12.7 % (11.6-16.5); WHITE BLOOD COUNT 18.6 X10^3/uL (3.6-10.0)
[2021-07-04 08:48] LABS: ALANINE AMINOTRANSFERASE 58 Units/L (12-78); ALBUMIN 2.2 g/dL (3.4-5.0); ALKALINE PHOSPHATASE 63 Units/L (46-116); ASPARTATE AMINO TRANSFERASE 83 Units/L (15-37); BLOOD UREA NITROGEN 17 mg/dL (7-18); CALCIUM 7.3 mg/dL (8.5-10.1); CHLORIDE 106 mmol/L (98-107); COR CA(FOR HYPOALB) 8.7 mg/dL (8.5-10.1); COR NA(FOR HYPERGLY) 146 mmol/L (136-145); CREATININE 0.42 mg/dL (0.70-1.30); SODIUM 145 mmol/L (136-145); TOTAL PROTEIN 4.3 g/dL (6.4-8.2); eGFR NON BLACK RACES > 60 (>60)
[2021-07-04 08:49] LABS: CARBON DIOXIDE 43.5 mmol/L (21-32)
[2021-07-04] MEDS ORDERED: IVERMECTIN PO ONE (08:58)
[2021-07-04] MEDS: VITAMIN D3 125 mcg (5,000 UNITS) NG SCH (09:16)
[2021-07-04] MEDS: ZOSYN VIAL 3.375 GRAMS 3.375 G in NS 100 ML IV + SPIKE MINIBAG* 100 ML IV SCH ×4 (09:16→21:03)
[2021-07-04] MEDS: PROTONIX INJ 40 MG VIAL IVP SCH ×2 (09:16→23:10)
[2021-07-04] MEDS: VITAMIN A PO SCH (09:17)
[2021-07-04] MEDS: LACRI-LUBE S.O.P. AFFEYE SCH ×2 (09:17→23:13)
[2021-07-04] MEDS: ZINC SULFATE NG SCH ×2 (09:17→23:00)
[2021-07-04] MEDS: FLUVOXAMINE MALEATE NG SCH ×2 (09:17→23:00)
[2021-07-04] MEDS: LIPITOR TAB 80 MG NG SCH (09:18)
[2021-07-04] MEDS: PEPCID TAB 40 MG NG SCH ×2 (09:18→23:00)
[2021-07-04] MEDS: AVODART PO SCH (09:18)
[2021-07-04 09:19] LABS: PLATELET MORPHOLOGY COMMENT NORMAL (NORMAL)
[2021-07-04] MEDS: ELIQUIS PO SCH ×2 (09:19→23:00)
[2021-07-04] MEDS: CYTOTEC NG SCH ×4 (09:19→23:00)
[2021-07-04] MEDS: BUTT CREAM (COMPOUND) TOP PRN ×3 (09:26→18:35)
[2021-07-04] MEDS ORDERED: NORCURON INJ 10 MG VIAL ONE (10:41)
[2021-07-04] MEDS: NORCURON INJ 10 MG VIAL 50 MG in NS 50 ML IV 50 ML IV PRN ×2 (10:48→10:53)
[2021-07-04] MEDS: VERSED 100 MG in NS 100 ML IV 80 ML IV PRN ×2 (10:57→21:51)
[2021-07-04] MEDS: ALBUMIN HUMAN 25%- 100 ML 100 ML IV SCH (11:07)
[2021-07-04] MEDS: TYGACIL 50 MG VIAL 50 MG in NS 100 ML IV 100 ML IV SCH ×2 (12:26→21:46)
[2021-07-04] MEDS: ALDACTONE TAB 25 MG PO SCH ×2 (12:26→23:00)
[2021-07-04] MEDS: AVELOX IV 400 MG/250 ML BAG 400 MG/250 ML PIGGYBACK IV SCH (12:27)
[2021-07-04] MEDS: MELATONIN NG SCH (23:00)
[2021-07-04] MEDS: VORICONAZOLE 600 MG in NS 250 ML IV 250 ML IV SCH (23:20)
[2021-07-05] MEDS: LIPOSYN III 20% 100ML 100 ML IV SCH ×2 (00:51→23:32)
[2021-07-05] MEDS: DIPRIVAN PREMIX 1 GRAM IV 1,000 MG/100 ML VIAL IV PRN ×5 (03:21→22:57)
[2021-07-05] MEDS: ASCORBIC ACID INJ MULTI-DOSE VIAL 1,500 MG in NS 50 ML IV 50 ML IV SCH ×3 (03:45→20:00)
[2021-07-05] MEDS: SOLU-Medrol 125 MG VIAL IVP SCH ×4 (04:40→22:00)
[2021-07-05 05:27] LABS: ABG BASE EXCESS 19.1 mmol/L (-2.0-2.0)
[2021-07-05 05:28] LABS: ABG ALLEN TEST POS; ABG HCO3 47.4 mmol/L (22-26)
[2021-07-05 05:57] LABS: BASOPHILS % (AUTO) 0.1 % (0.2-1.0); HEMATOCRIT 28.2 % (42.0-54.0); HEMOGLOBIN 9.9 g/dL (13.5-18.0); LYMPHOCYTES # (AUTO) 0.2 X10^3/uL (1.3-2.9); LYMPHOCYTES % (AUTO) 0.9 % (21.0-51.0); MEAN CORPUSCULAR HEMOGLOBIN 31.5 pg (27.0-34.0); MEAN CORPUSCULAR VOLUME 89.9 fL (80.0-100.0); MEAN PLATELET VOLUME 9.5 fL (7.4-11.0); MONOCYTES # (AUTO) 0.4 x10^3/uL (0.3-0.8); MONOCYTES % (AUTO) 1.6 % (0.0-13.0); NEUTROPHILS # (AUTO) 22.9 x10^3/uL (2.2-4.8); NEUTROPHILS % (AUTO) 97.4 % (42.0-75.0); PLATELET COUNT 119 X10^3/uL (150.0-450.0); RED BLOOD COUNT 3.14 X10^6/uL (4.7-6.0); RED CELL DISTRIBUTION WIDTH 12.6 % (11.6-16.5); WHITE BLOOD COUNT 23.5 X10^3/uL (3.6-10.0)
[2021-07-05 05:58] LABS: ALANINE AMINOTRANSFERASE 78 Units/L (12-78); ALBUMIN 2.1 g/dL (3.4-5.0); ALKALINE PHOSPHATASE 67 Units/L (46-116); ASPARTATE AMINO TRANSFERASE 162 Units/L (15-37); BLOOD UREA NITROGEN 15 mg/dL (7-18); CALCIUM 7.2 mg/dL (8.5-10.1); CHLORIDE 106 mmol/L (98-107); COR CA(FOR HYPOALB) 8.7 mg/dL (8.5-10.1); COR NA(FOR HYPERGLY) 148 mmol/L (136-145); CREATININE 0.44 mg/dL (0.70-1.30); SODIUM 147 mmol/L (136-145); TOTAL PROTEIN 4.2 g/dL (6.4-8.2); eGFR NON BLACK RACES > 60 (>60)
[2021-07-05 06:24] LABS: CARBON DIOXIDE 42.1 mmol/L (21-32)
[2021-07-05] MEDS ORDERED: K-DUR TAB 20 MEQ PO PRN (06:36)
[2021-07-05] MEDS ORDERED: K-RIDER 10 MEQ/NS 100 ML 10 MEQ/100 ML BAG IV PRN (06:36)
[2021-07-05] MEDS ORDERED: POTASSIUM CHLORIDE LIQ 20 MEQ UDC ONE (06:42)
[2021-07-05] MEDS ORDERED: POTASSIUM CHLORIDE LIQ 20 MEQ UDC PO PRN (06:43)
[2021-07-05 07:33] LABS: BAND NEUTROPHILS % 4 % (0-10)
[2021-07-05 07:34] LABS: PLATELET MORPHOLOGY COMMENT NORMAL (NORMAL)
[2021-07-05] MEDS: NS 1/2 1000 ML IV 1,000 ML IV SCH (07:51)
[2021-07-05] MEDS: BUTT CREAM (COMPOUND) TOP PRN ×3 (07:53→23:03)
[2021-07-05] MEDS: VERSED 100 MG in NS 100 ML IV 80 ML IV PRN ×2 (07:54→23:03)
[2021-07-05] MEDS: ALBUMIN HUMAN 25%- 100 ML 100 ML IV SCH (08:07)
[2021-07-05] MEDS: ZOSYN VIAL 3.375 GRAMS 3.375 G in NS 100 ML IV + SPIKE MINIBAG* 100 ML IV SCH ×4 (08:10→22:00)
[2021-07-05] MEDS: CYTOTEC NG SCH ×4 (08:10→22:00)
[2021-07-05] MEDS: ZINC SULFATE NG SCH ×2 (08:10→22:00)
[2021-07-05] MEDS: AVODART PO SCH (08:11)
[2021-07-05] MEDS: ELIQUIS PO SCH ×2 (08:11→22:00)
[2021-07-05] MEDS: ALDACTONE TAB 25 MG PO SCH (08:11)
[2021-07-05] MEDS: FLUVOXAMINE MALEATE NG SCH ×2 (08:11→22:00)
[2021-07-05] MEDS: PEPCID TAB 40 MG NG SCH ×2 (08:11→22:00)
[2021-07-05] MEDS: LIPITOR TAB 80 MG NG SCH (08:12)
[2021-07-05] MEDS: PROTONIX INJ 40 MG VIAL IVP SCH ×2 (08:13→22:00)
[2021-07-05] MEDS: VITAMIN D3 125 mcg (5,000 UNITS) NG SCH (08:14)
[2021-07-05] MEDS: LACRI-LUBE S.O.P. AFFEYE SCH ×2 (08:14→22:00)
[2021-07-05] MEDS: VITAMIN A PO SCH (08:14)
--- NOTE | 2021-07-05 08:18 | RAD ---
HISTORYCOVID PNEUMONIASTUDYCHEST, 1 [id number]/30/2021FINDINGSBilateral opacity in the lungs is mostly diffuse but has a more focal component in the right upper lung. Findings are compatible with pneumonia. No change from yesterday. No pleural effusion or pneumothorax.Heart size is normal.Bones are unremarkable.The endotracheal tube is anatomic in position in the trachea. The enteric tube extends into the upper abdomen. EKG leads a re noted.IMPRESSION1. Unchanged pneumoniaElectronically signed by: Lewis Nicole (Jul 05, 2021 08 :17:08)
[2021-07-05] MEDS: NORCURON INJ 10 MG VIAL 50 MG in NS 50 ML IV 50 ML IV PRN ×2 (09:38→22:56)
[2021-07-05] MEDS ORDERED: ALDACTONE TAB 25 MG PO SCH (10:00)
[2021-07-05] MEDS: VORICONAZOLE 600 MG in NS 250 ML IV 250 ML IV SCH (10:00)
[2021-07-05] MEDS: PULMICORT NEB TX 0.5 MG NEB SCH ×2 (10:08→20:32)
[2021-07-05] MEDS: BROVANA IN SCH ×2 (10:08→20:32)
[2021-07-05] MEDS: TYGACIL 50 MG VIAL 50 MG in NS 100 ML IV 100 ML IV SCH ×2 (10:23→21:00)
[2021-07-05] MEDS: AVELOX IV 400 MG/250 ML BAG 400 MG/250 ML PIGGYBACK IV SCH (10:44)
[2021-07-05] MEDS: CARAFATE ORAL SUSP PO SCH ×3 (13:47→22:00)
[2021-07-05] MEDS: MORPHINE SULFATE INJ 2 MG INJ IVP PRN (14:50)
[2021-07-05] MEDS ORDERED: SOLU-Medrol 125 MG VIAL IVP SCH (15:00)
[2021-07-05] MEDS: ALDACTONE TAB 25 MG GT SCH (21:00)
[2021-07-05] MEDS: MELATONIN NG SCH (22:00)
[2021-07-05] MEDS: VORICONAZOLE 400 MG in NS 100 ML IV 100 ML IV SCH (22:00)
[2021-07-06] MEDS: ASCORBIC ACID INJ MULTI-DOSE VIAL 1,500 MG in NS 50 ML IV 50 ML IV SCH ×2 (02:52→13:58)
[2021-07-06] MEDS: BUTT CREAM (COMPOUND) TOP PRN (02:53)
[2021-07-06] MEDS: SOLU-Medrol 125 MG VIAL IVP SCH ×4 (02:53→20:19)
[2021-07-06] MEDS: DIPRIVAN PREMIX 1 GRAM IV 1,000 MG/100 ML VIAL IV PRN ×4 (02:53→20:12)
[2021-07-06] MEDS: NS 1/2 1000 ML IV 1,000 ML IV SCH ×2 (03:28→09:37)
[2021-07-06 05:55] LABS: BASOPHILS # (AUTO) 0.1 X10^3/uL (0.0-0.1); BASOPHILS % (AUTO) 0.2 % (0.2-1.0); HEMATOCRIT 29.6 % (42.0-54.0); HEMOGLOBIN 10.3 g/dL (13.5-18.0); LYMPHOCYTES # (AUTO) 0.2 X10^3/uL (1.3-2.9); LYMPHOCYTES % (AUTO) 0.7 % (21.0-51.0); MEAN CORPUSCULAR HEMOGLOBIN 31.6 pg (27.0-34.0); MEAN CORPUSCULAR HGB CONC 34.8 g/dL (33.0-35.0); MEAN CORPUSCULAR VOLUME 90.9 fL (80.0-100.0); MEAN PLATELET VOLUME 9.2 fL (7.4-11.0); MONOCYTES # (AUTO) 0.7 x10^3/uL (0.3-0.8); MONOCYTES % (AUTO) 2.3 % (0.0-13.0); NEUTROPHILS # (AUTO) 28.3 x10^3/uL (2.2-4.8); NEUTROPHILS % (AUTO) 96.8 % (42.0-75.0); PLATELET COUNT 139 X10^3/uL (150.0-450.0); RED BLOOD COUNT 3.26 X10^6/uL (4.7-6.0); WHITE BLOOD COUNT 29.3 X10^3/uL (3.6-10.0)
[2021-07-06 06:09] LABS: ALANINE AMINOTRANSFERASE 131 Units/L (12-78); ALBUMIN 2.4 g/dL (3.4-5.0); ALKALINE PHOSPHATASE 83 Units/L (46-116); BLOOD UREA NITROGEN 16 mg/dL (7-18); CALCIUM 7.2 mg/dL (8.5-10.1); CHLORIDE 107 mmol/L (98-107); COR CA(FOR HYPOALB) 8.5 mg/dL (8.5-10.1); COR NA(FOR HYPERGLY) 150 mmol/L (136-145); CREATININE 0.42 mg/dL (0.70-1.30); SODIUM 148 mmol/L (136-145); TOTAL PROTEIN 4.5 g/dL (6.4-8.2); eGFR NON BLACK RACES > 60 (>60)
[2021-07-06 06:10] LABS: ABG ALLEN TEST POS; ABG HCO3 46.9 mmol/L (22-26)
[2021-07-06] MEDS: HumuLIN R SUBCUT PRN ×3 (06:23→16:59)
[2021-07-06] MEDS: VERSED 100 MG in NS 100 ML IV 80 ML IV PRN ×2 (06:26→16:58)
[2021-07-06] MEDS: NORCURON INJ 10 MG VIAL 50 MG in NS 50 ML IV 50 ML IV PRN ×2 (06:26→16:58)
[2021-07-06 06:30] LABS: ASPARTATE AMINO TRANSFERASE 408 Units/L (15-37)
[2021-07-06 06:32] LABS: CARBON DIOXIDE 41.9 mmol/L (21-32)
[2021-07-06 06:54] LABS: PLATELET MORPHOLOGY COMMENT NORMAL (NORMAL)
[2021-07-06] MEDS ORDERED: PHARMACY CONSULT - VANCOMYCIN XX SCH (09:00)
[2021-07-06] MEDS: ALDACTONE TAB 25 MG GT SCH ×2 (09:16→20:18)
[2021-07-06] MEDS: AVODART PO SCH (09:17)
[2021-07-06] MEDS: CYTOTEC NG SCH ×4 (09:17→20:19)
[2021-07-06] MEDS: CARAFATE ORAL SUSP PO SCH ×4 (09:17→21:07)
[2021-07-06] MEDS: ELIQUIS PO SCH ×2 (09:17→20:18)
[2021-07-06] MEDS: LIPITOR TAB 80 MG NG SCH (09:18)
[2021-07-06] MEDS: LACRI-LUBE S.O.P. AFFEYE SCH ×2 (09:18→20:19)
[2021-07-06] MEDS: FLUVOXAMINE MALEATE NG SCH ×2 (09:18→20:18)
[2021-07-06] MEDS: PEPCID TAB 40 MG NG SCH ×2 (09:23→20:19)
[2021-07-06] MEDS: PROTONIX INJ 40 MG VIAL IVP SCH ×2 (09:23→20:18)
[2021-07-06] MEDS: ALBUMIN HUMAN 25%- 100 ML 100 ML IV SCH (09:24)
[2021-07-06] MEDS: VITAMIN D3 125 mcg (5,000 UNITS) NG SCH (09:24)
[2021-07-06] MEDS: VITAMIN A PO SCH (09:24)
[2021-07-06] MEDS: ZINC SULFATE NG SCH ×2 (09:24→20:20)
[2021-07-06] MEDS: ZOSYN VIAL 3.375 GRAMS 3.375 G in NS 100 ML IV + SPIKE MINIBAG* 100 ML IV SCH ×4 (09:25→22:07)
[2021-07-06] MEDS: BROVANA IN SCH ×2 (09:28→21:40)
[2021-07-06] MEDS: PULMICORT NEB TX 0.5 MG NEB SCH ×2 (09:28→21:40)
[2021-07-06] MEDS: VORICONAZOLE 400 MG in NS 100 ML IV 100 ML IV SCH ×2 (10:59→20:09)
[2021-07-06] MEDS: AVELOX IV 400 MG/250 ML BAG 400 MG/250 ML PIGGYBACK IV SCH (12:51)
--- NOTE | 2021-07-06 13:09 | RAD ---
CHEST, 1 VIEWHISTORY: PNEUMONIA, VENTILATOR DEPENDENCEStudy: Single view of the chest.Comparison:July 05, 2021Findings:The cardiomediastinal silhouette is normal. No change in the appearance of bilateral insterstitial and airspace opacities. No change in positioning of cardiopulmonary support devices. Osseous structures demonstrate no acute abnormality.IMPRESSION:1. No change from prior.Electronically signed by: PRAVIN CHIU (Jul 06, 2021 13:08:17)
--- NOTE | 2021-07-06 13:11 | US ---
HISTORYCOVID, VENTILATOR, ELEV LFT'S elevated liver function tests.STUDYLIVERCOMPARISONCTA chest 06/17/2021TECHNIQUESixty-seven images made by the gis instructor. Jenkins scale and color-flow doppler images of the right upper quadrant were obtained.FINDINGSThe liver has diffuse increased echogenicity. The most common etiology for this finding is fatty liver; but cirrhosis, chronic hepatitis, and deposition disorders can have a similar appearance. The liver is normal in size. No mass or intrahepatic biliary duct dilatation is present. The intrahepatic inferior vena cava was imaged.The visualized hepatic veins are patent with blood flow toward the right atrium. Portal vein probably patent.The pancreas is largely obscured by overlying bowel gas.The gallbladder is normally distended with no stones, wall thickening, or pericholecystic fluid. No extrahepatic biliary duct dilatation; common duct is normal.The right kidney is normal in size and echogenicity. No hydronephrosis.IMPRESSION1. Findings consistent with hepatic steatosisElectronically signed by: Lewis Nicole (Jul 06, 2021 13:10:13)
[2021-07-06] MEDS ORDERED: NS 1/2 1000 ML IV 1,000 ML IV ONE (15:35)
[2021-07-06] MEDS: VANCOMYCIN IV *PREMIX 1 G/200 ML BAG 1 G/200 ML PIGGYBACK IV SCH ×2 (16:04→22:00)
[2021-07-06] MEDS: ASCORBIC ACID MULTI IV SCH ×2 (16:04)
[2021-07-06] MEDS: NS IV SCH ×2 (16:04)
[2021-07-06] MEDS: MELATONIN NG SCH (20:18)
[2021-07-06] MEDS: LIPOSYN III 20% 100ML 100 ML IV SCH (20:21)
[2021-07-07] MEDS: DIPRIVAN PREMIX 1 GRAM IV 1,000 MG/100 ML VIAL IV PRN ×3 (01:48→21:00)
[2021-07-07] MEDS: SOLU-Medrol 125 MG VIAL IVP SCH ×4 (03:18→21:00)
[2021-07-07 04:57] LABS: ABG BASE EXCESS 18.5 mmol/L (-2.0-2.0)
[2021-07-07 05:01] LABS: ABG ALLEN TEST POS; ABG HCO3 46.2 mmol/L (22-26)
[2021-07-07] MEDS: VANCOMYCIN IV *PREMIX 1 G/200 ML BAG 1 G/200 ML PIGGYBACK IV SCH (05:06)
[2021-07-07] MEDS: ASCORBIC ACID MULTI IV SCH ×4 (05:06→16:40)
[2021-07-07] MEDS: NS IV SCH ×4 (05:06→16:40)
[2021-07-07 05:31] LABS: BASOPHILS % (AUTO) 0.2 % (0.2-1.0); HEMATOCRIT 28.3 % (42.0-54.0); LYMPHOCYTES # (AUTO) 0.2 X10^3/uL (1.3-2.9); LYMPHOCYTES % (AUTO) 0.8 % (21.0-51.0); MEAN CORPUSCULAR HEMOGLOBIN 32.2 pg (27.0-34.0); MEAN CORPUSCULAR HGB CONC 35.1 g/dL (33.0-35.0); MEAN CORPUSCULAR VOLUME 91.8 fL (80.0-100.0); MEAN PLATELET VOLUME 9.6 fL (7.4-11.0); MONOCYTES # (AUTO) 0.5 x10^3/uL (0.3-0.8); NEUTROPHILS # (AUTO) 25.6 x10^3/uL (2.2-4.8); PLATELET COUNT 129 X10^3/uL (150.0-450.0); RED BLOOD COUNT 3.09 X10^6/uL (4.7-6.0); WHITE BLOOD COUNT 26.4 X10^3/uL (3.6-10.0)
[2021-07-07 05:55] LABS: ALBUMIN 2.3 g/dL (3.4-5.0); ALKALINE PHOSPHATASE 98 Units/L (46-116); BLOOD UREA NITROGEN 17 mg/dL (7-18); CALCIUM 7.1 mg/dL (8.5-10.1); CHLORIDE 107 mmol/L (98-107); COR CA(FOR HYPOALB) 8.5 mg/dL (8.5-10.1); COR NA(FOR HYPERGLY) 151 mmol/L (136-145); CREATININE 0.47 mg/dL (0.70-1.30); SODIUM 149 mmol/L (136-145); TOTAL PROTEIN 4.4 g/dL (6.4-8.2); eGFR NON BLACK RACES > 60 (>60)
[2021-07-07 06:29] LABS: ALANINE AMINOTRANSFERASE 185 Units/L (12-78); ASPARTATE AMINO TRANSFERASE 587 Units/L (15-37); CARBON DIOXIDE 42.4 mmol/L (21-32)
[2021-07-07 06:54] LABS: PLATELET MORPHOLOGY COMMENT NORMAL (NORMAL)
[2021-07-07] MEDS: NORCURON INJ 10 MG VIAL 50 MG in NS 50 ML IV 50 ML IV PRN (07:49)
[2021-07-07] MEDS: VERSED 100 MG in NS 100 ML IV 80 ML IV PRN (07:50)
--- NOTE | 2021-07-07 08:17 | RAD ---
HISTORYVENTILATOR DEPENDENCESTUDYCHEST, 1 VIEWCOMPARISONOne day prior.TECHNIQUEAP view of the chestFINDINGSET tube in good position. NG tube courses below the visualized field of view. Cardiac and mediastinal contours are within normal limits. No significant change in diffuse bilateral airspace opacities. No definite pleural effusion or pneumothorax.IMPRESSIONNo significant change.Electronically signed by: Robert Benavides (Jul 07, 2021 08:15:12)
[2021-07-07] MEDS: CYTOTEC NG SCH ×4 (08:28→21:00)
[2021-07-07] MEDS: CARAFATE ORAL SUSP PO SCH ×4 (08:28→21:00)
[2021-07-07] MEDS: ALDACTONE TAB 25 MG GT SCH ×2 (08:28→21:00)
[2021-07-07] MEDS: AVODART PO SCH (08:28)
[2021-07-07] MEDS: FLUVOXAMINE MALEATE NG SCH ×2 (08:29→21:00)
[2021-07-07] MEDS: LACRI-LUBE S.O.P. AFFEYE SCH ×2 (08:29→21:00)
[2021-07-07] MEDS: LIPITOR TAB 80 MG NG SCH (08:29)
[2021-07-07] MEDS: PEPCID TAB 40 MG NG SCH ×2 (08:29→21:00)
[2021-07-07] MEDS: ELIQUIS PO SCH ×2 (08:29→21:00)
[2021-07-07] MEDS: PROTONIX INJ 40 MG VIAL IVP SCH ×2 (08:30→21:00)
[2021-07-07] MEDS: VITAMIN A PO SCH (08:30)
[2021-07-07] MEDS: VITAMIN D3 125 mcg (5,000 UNITS) NG SCH (08:30)
[2021-07-07] MEDS: ZINC SULFATE NG SCH ×2 (08:30→21:00)
[2021-07-07] MEDS: ZOSYN VIAL 3.375 GRAMS 3.375 G in NS 100 ML IV + SPIKE MINIBAG* 100 ML IV SCH ×3 (09:14→16:39)
[2021-07-07] MEDS: BROVANA IN SCH (09:38)
[2021-07-07] MEDS: PULMICORT NEB TX 0.5 MG NEB SCH (09:38)
[2021-07-07] MEDS ORDERED: NS 500 ML IV 500 ML IV ONE (10:27)
[2021-07-07] MEDS ORDERED: LASIX IVP ONE (12:48)
[2021-07-07] MEDS: VORICONAZOLE 400 MG in NS 100 ML IV 100 ML IV SCH ×2 (12:55→23:00)
[2021-07-07] MEDS ORDERED: PHARMACY COMMENT IV ONE (13:30)
--- NOTE | 2021-07-07 14:16 | DR.UPDATE ---
H&P Update History and Physical Update: History and Physical reviewed and patient examined. Changes noted: NO Yes with the following:will place arterial line for sampling/bp H&P Reviewed: Yes Patient was examined?: Yes Procedures (ALL) - Arterial Line Consent obtained: verbal consent Time out performed: Yes Size(gauge): 20 Technique used: guided wire technique Post-procedure: dry sterile dressing placed Patient tolerated procedure: Yes Site: right, radial
[2021-07-07 15:34] LABS: CREATININE 0.41 mg/dL (0.70-1.30); VANCOMYCIN,TROUGH 9.2 ug/mL (15-20)
[2021-07-07] MEDS: DUONEB 0.5 MG/3 MG (3 mL) NEB SCH ×2 (15:36→17:00)
[2021-07-07] MEDS: VANCOMYCIN IV *PREMIX 1.25 G/250 ML BAG 1.25 G/250 ML PIGGYBACK IV SCH ×2 (16:37→21:08)
[2021-07-07] MEDS: MELATONIN NG SCH (21:00)
[2021-07-07] MEDS ORDERED: AVELOX IV 400 MG/250 ML BAG 400 MG/250 ML PIGGYBACK IV SCH (21:00)
[2021-07-07] MEDS: HumuLIN R SUBCUT PRN (21:00)
--- NOTE | 2021-07-07 21:15 | DR.CONSULT ---
CONSULT Consultation for Day of: Date: 07/07/21 Chief Complaint Chief Complaint: dyspnea Allergies Allergies Allergy/AdvReac Type Severity Reaction Status Date / Time No Known Drug Allergies Allergy Verified 06/14/21 23:14 History of Present Illness History of Present Illness: 40 year old male with PMH of obesity, and obstructive sleep apnea who is currently hospitalized since 06/16/2021 with acute hypoxic respiratory failure secondary to COVID-19 pneumonia. patient's hospital course was eventful for worsening respiratory failure and refractory hypoxemia that eventually resulted in intubation and mechanical ventilation on 06/27/2021. patient was treated for severe ARDS and required to be on high vent settings, with PEEP levels up to 18-20 CM of H2O, placed in prone positioning which resulted in improvement in gas exchange and lung mechanics. he was started on pulse dose steroids, and empiric antibiotics coverage. over the last couple of days it was noted that he was not progressing despite maximal efforts and a critical care consult was placed. Past Medical History Past Medical History: Sleep Apnea; denies Alzheimers, Anemia, Angina, Anxiety, Arthritis, Asthma, Cirrhosis, CHF, COPD, Coronary Artery Disease, CVA, Dementia, Depression, Diabetes, Dialysis, Dyslipidemia, Migraines, GERD, Gout, Headaches, Hypertension, Hyperthyroidism, Hypothyroidism, Kidney Stones, Liver Disease, CT, PUD, Renal Disease, Schizophrenia, Seizures, SVT and Ventricular Tachycardia Past Surgical History Surgical History: Ortho Surgery Social History Does patient currently use any type of tobacco product: No Have you used tobacco products in the last 12 months: No Type of Tobacco Use: None Does any household member use tobacco: No Alcohol Use: None Drug Use: None Medications Home Medications: No Known Drug Allergies Allergy (Verified 06/14/21 23:14) CONTINUE taking the following medications NK 06/15/21 [History] Review of Systems Constitutional: See HPI Physical Exam Vital Signs: Temperature 98.5 F Pulse Rate [Left Brachial] 68 Pulse Rate 111 Respiratory Rate 12 Blood Pressure [Left Arm] 94/55 Blood Pressure 123/72 O2 Sat by Pulse Oximetry 90 Plan Plan: Acute hypoxic respiratory failure. ARDS COVID-19 pneumonia. possible superimposed bacterial pneumonia. Volume overload. Bronchospasm. morbid obesity. SHABBIR. Plan: low tidal volume protective ventilation. optimize PEEP, wean FIO2 as tolerated. maintain plateau pressure less than 30 cm of H2O and driving pressure less than 15 cm of H2O. optimize sedation. continue neuromuscular blockade. bronchodilators. taper down steroids. trial of diuresis. monitor urine output and renal function. continue anticoagulation. continue tube feeding. the case and recommendations were discussed with Dr Joseph. Zee Ferris MD Pulmonary and Critical Care Medicine. [facility] [place]. [facility].
[2021-07-07] MEDS: LIPOSYN III 20% 100ML 100 ML IV SCH (21:30)
[2021-07-07] MEDS ORDERED: ALBUMIN HUMAN 25%- 100 ML 100 ML IV SCH (22:00)
[2021-07-08] MEDS: DUONEB 0.5 MG/3 MG (3 mL) NEB SCH ×3 (00:20→09:55)
[2021-07-08] MEDS: SOLU-Medrol 125 MG VIAL IVP SCH ×2 (02:20→09:18)
[2021-07-08] MEDS: VERSED 100 MG in NS 100 ML IV 80 ML IV PRN ×2 (03:20→09:15)
[2021-07-08] MEDS: DIPRIVAN PREMIX 1 GRAM IV 1,000 MG/100 ML VIAL IV PRN (03:55)
[2021-07-08 04:10] LABS: ABG HCO3 46.7 mmol/L (22-26)
[2021-07-08] MEDS ORDERED: STERILE WATER IRRIGATION IR ONE (06:30)
[2021-07-08] MEDS: VANCOMYCIN IV *PREMIX 1.25 G/250 ML BAG 1.25 G/250 ML PIGGYBACK IV SCH (06:58)
[2021-07-08] MEDS: NS IV SCH ×2 (06:58)
[2021-07-08] MEDS: ASCORBIC ACID MULTI IV SCH ×2 (06:58)
[2021-07-08] MEDS: HumuLIN R SUBCUT PRN (07:00)
[2021-07-08 07:45] LABS: eGFR NON BLACK RACES > 60 (>60)
[2021-07-08 07:46] LABS: BASOPHILS # (AUTO) 0.1 X10^3/uL (0.0-0.1); BASOPHILS % (AUTO) 0.6 % (0.2-1.0); HEMATOCRIT 23.2 % (42.0-54.0); LYMPHOCYTES # (AUTO) 0.3 X10^3/uL (1.3-2.9); LYMPHOCYTES % (AUTO) 1.1 % (21.0-51.0); MEAN CORPUSCULAR HEMOGLOBIN 31.2 pg (27.0-34.0); MEAN CORPUSCULAR HGB CONC 33.4 g/dL (33.0-35.0); MEAN CORPUSCULAR VOLUME 93.4 fL (80.0-100.0); MEAN PLATELET VOLUME 9.8 fL (7.4-11.0); MONOCYTES # (AUTO) 0.8 x10^3/uL (0.3-0.8); MONOCYTES % (AUTO) 3.4 % (0.0-13.0); NEUTROPHILS # (AUTO) 23.4 x10^3/uL (2.2-4.8); NEUTROPHILS % (AUTO) 94.9 % (42.0-75.0); PLATELET COUNT 101 X10^3/uL (150.0-450.0); RED BLOOD COUNT 2.48 X10^6/uL (4.7-6.0); RED CELL DISTRIBUTION WIDTH 13.2 % (11.6-16.5); WHITE BLOOD COUNT 24.6 X10^3/uL (3.6-10.0)
[2021-07-08 08:27] LABS: ALANINE AMINOTRANSFERASE 233 Units/L (12-78); ALBUMIN 2.3 g/dL (3.4-5.0); ALKALINE PHOSPHATASE 91 Units/L (46-116); ASPARTATE AMINO TRANSFERASE 654 Units/L (15-37); BLOOD UREA NITROGEN 27 mg/dL (7-18); CALCIUM 7.1 mg/dL (8.5-10.1); CHLORIDE 107 mmol/L (98-107); COR CA(FOR HYPOALB) 8.5 mg/dL (8.5-10.1); COR NA(FOR HYPERGLY) 151 mmol/L (136-145); CREATININE 0.68 mg/dL (0.70-1.30); SODIUM 149 mmol/L (136-145); TOTAL PROTEIN 4.3 g/dL (6.4-8.2)
[2021-07-08 08:35] LABS: CARBON DIOXIDE 41.2 mmol/L (21-32)
[2021-07-08 08:54] LABS: HEMOGLOBIN 7.8 g/dL (13.5-18.0)
[2021-07-08 08:57] LABS: HEMOGLOBIN 7.7 g/dL (13.5-18.0)
[2021-07-08] MEDS ORDERED: NORCURON INJ 10 MG VIAL ONE (09:07)
[2021-07-08] MEDS: NORCURON INJ 10 MG VIAL 50 MG in NS 50 ML IV 50 ML IV PRN (09:15)
[2021-07-08] MEDS: AVODART PO SCH (09:16)
[2021-07-08] MEDS: ZOSYN VIAL 3.375 GRAMS 3.375 G in NS 100 ML IV + SPIKE MINIBAG* 100 ML IV SCH ×3 (09:16)
[2021-07-08] MEDS: ALDACTONE TAB 25 MG GT SCH (09:16)
[2021-07-08] MEDS: FLUVOXAMINE MALEATE NG SCH (09:17)
[2021-07-08] MEDS: ELIQUIS PO SCH (09:17)
[2021-07-08] MEDS: CYTOTEC NG SCH (09:17)
[2021-07-08] MEDS: LACRI-LUBE S.O.P. AFFEYE SCH (09:17)
[2021-07-08] MEDS: CARAFATE ORAL SUSP PO SCH (09:17)
[2021-07-08] MEDS: PROTONIX INJ 40 MG VIAL IVP SCH (09:18)
[2021-07-08] MEDS: VITAMIN D3 125 mcg (5,000 UNITS) NG SCH (09:18)
[2021-07-08] MEDS: LIPITOR TAB 80 MG NG SCH (09:18)
[2021-07-08] MEDS: ZINC SULFATE NG SCH (09:18)
[2021-07-08] MEDS: VITAMIN A PO SCH (09:18)
[2021-07-08] MEDS: PEPCID TAB 40 MG NG SCH (09:18)
[2021-07-08] MEDS ORDERED: LEVAQUIN PREMIX IV 750 MG 750 MG/150 ML BAG IV SCH (10:00)
[2021-07-08 10:21] LABS: PLATELET MORPHOLOGY COMMENT NORMAL (NORMAL)
--- NOTE | 2021-07-08 11:26 | RAD ---
HISTORYCOVID PNEUMONIA, intubatedSTUDYCHEST x-ray, 1 VIEWCOMPARISONX-ray from previous dayFINDINGSEndotracheal tube terminates 4.3 cm above the dave. Enteric tube passes into the stomach. Bilateral lung infiltrates are unchanged. Borderline CHF changes. No pneumothorax or pleural effusion is seen.IMPRESSIONAppearance of the chest is unchanged.Electronically signed by: Alessandro James (Jul 08, 2021 11:24:15)
[2021-07-08 11:35] VITALS: BP 113/64
[2021-07-08] MEDS ORDERED: PHARMACY COMMENT IV NR (13:30)
== END 2021-07-08 13:31 | disposition short-term general hospital (02) | DRG 207 ==
LOC: ER 23:03 → OBS 06-15 03:19 → MED/SURG 06-15 18:10 → ICU 06-17 14:47
PROVIDERS: ADMIT Family Medicine; ATTEND Obstetrics & Gynecology Obstetrics
DX: J80 Acute respiratory distress syndrome; E66.9 Obesity, unspecified; J98.01 Acute bronchospasm; J12.81 Pneumonia due to SARS-associated coronavirus; J15.0 Pneumonia due to Klebsiella pneumoniae; G47.33 Obstructive sleep apnea (adult) (pediatric); I87.2 Venous insufficiency (chronic) (peripheral); E87.0 Hyperosmolality and hypernatremia; U07.1 COVID-19; R94.5 Abnormal results of liver function studies; J15.212 Pneumonia due to Methicillin resistant Staphylococcus aureus